=== PATIENT | female | born 1930 | race Caucasian/White ===

== ENCOUNTER 2016-12-01 10:18 | Emergency (ER) | payer MEDICARE, BC, MEDICAID ==
[2016-12-01] MEDS ORDERED: cefTRIAXone VIAL(*) 1,000 MG in NS 0.9% 50 ML* 50 ML IM ONE (12:17)
[2016-12-01] MEDS ORDERED: cefTRIAXone VIAL(*) 1,000 MG VIAL ONE (12:21)
[2016-12-01] MEDS ORDERED: Lidocaine 1% MPF* 2 ML VIAL ONE (12:21)
--- NOTE | 2016-12-01 12:24 | UC ---
Hand/Wrist HPI - HPI Summary HPI Summary: she has had similar presentation in the past and it was found to be gout. she was in contact with Dr. Cedeno for this episode and he called in colcrys. she has taken two doses without relief. She has Left wrist redness and swelling. it is becoming less painful presently . no fevers or chills. No known injury. She has also had diarrhea off and on for a few weeks. it will come and go. she has wanted to speak with Dr. Cedeno but it has improved often. she denies bleeding current abd pain or fever. - History Of Current Complaint Chief Complaint: UCUpperExtremity Stated Complaint: LEFT HAND SWOLLEN Time Seen by Provider: 12/01/16 12:09 Hx Obtained From: Patient, Family/Glazier Supervisor Hx Last Menstrual Period: n/a Onset/Duration: Sudden Onset Severity Initially: Moderate Severity Currently: Mild Character Of Pain: Aching, Stiffness Aggravating Factor(s): Movement Alleviating: Rest Associated Signs And Symptoms: Positive: Swelling, Redness. Negative: Bruising , Fever, Weakness, Numbness/Tingling Related History: Similar Episode/Dx As - prior episode was gout. - Allergies/Home Medications Allergies/Adverse Reactions: Allergies Allergy/AdvReac Type Severity Reaction Status Date / Time CARLIN Inhibitors AdvReac Coughing Verified 05/15/16 15:21 NSAIDs AdvReac AVOIDS DUE Verified 12/01/16 12:02 TO ESRD Home Medications: Home Medications Docusate CAP* [Colace Cap*] 100 - 200 mg PO DAILY PRN 12/01/16 [History Confirmed 12/01/16] Multiple Vitamins W/ Minerals [Eye Vitamins & Minerals] 1 tab PO BID 12/01/16 [ History Confirmed 12/01/16] PMH/Surg Hx/FS Hx/Imm Hx Endocrine History Of: Denies: Diabetes, Thyroid Disease Cardiovascular History Of: Reports: Cardiac Disorders - bradycardia s/p pacemaker, a-fib,, Hypertension, Pacemaker/ICD Respiratory History Of: Reports: Asthma - Chronic bronchitis, Bronchitis Denies: COPD GI/ History Of: Denies: Ulcer Psychological History Of: Reports: Anxiety - WELL CONTROLLED - Surgical History Surgical History: Yes Surgery Procedure, Year, and Place: 1955-HYSTERECTOMY. BIL[place]ACT - [place]. RIGHT ARM FISTULA -[facility]/[place] 2013. BACK SURGERY-[facility] 2004. ORIF RIGHT ANKLE 11/15 [facility], Left hip fx 08/2016 - Family History Known Family History: Positive: Hypertension - Social History Alcohol Use: None Substance Use Type: None Smoking Status (MU): Never Smoked Tobacco Have You Smoked in the Last Year: No - Immunization History Most Recent Influenza Vaccination: Fall 2015 Most Recent Tetanus Shot: UTD Most Recent Pneumonia Vaccination: Up to date Review of Systems All Other Systems Reviewed And Are Negative: Yes Physical Exam Triage Information Reviewed: Yes Appearance: Well-Appearing, No Pain Distress, Well-Nourished Vital Signs: Initial Vital Signs Temp 97.4 F 12/01/16 11:49 Pulse 79 12/01/16 11:49 Resp 24 12/01/16 11:49 BP 144/58 12/01/16 11:49 Vital Signs Reviewed: Yes Eye Exam: Normal Eyes: Positive: Conjunctiva Clear. Negative: Conjunctiva Inflamed ENT Exam: Normal ENT: Positive: Normal ENT inspection, Hearing grossly normal, Pharynx normal, TMs normal. Negative: Pharyngeal erythema, Nasal congestion, Nasal drainage, Tonsillar swelling, Tonsillar exudate, Trismus, Muffled/hoarse voice Neck exam: Normal Neck: Positive: Supple, Nontender, No Lymphadenopathy. Negative: Nuchal Rigidity, Tenderness @, Enlarged Nodes @ Respiratory Exam: Normal Respiratory: Positive: Chest non-tender, Normal breath sounds, No respiratory distress, No accessory muscle use. Negative: Respiratory distress, Decreased breath sounds Cardiovascular Exam: Normal Cardiovascular: Positive: RRR, No Murmur, Pulses Normal Abdominal Exam: Normal Abdomen Description: Positive: Nontender, No Organomegaly Musculoskeletal: Positive: Strength Intact, ROM Intact, Other: - there is left wrist diffuse swelling most notably at the medial aspect. it is warm and pink not hot and red. THere is no streaking or crepitus. there is induration. no axillary adenopathy. Neurological Exam: Normal Neurological: Positive: Alert, Muscle Tone Normal. Negative: Fatigued, Lethargic, Unresponsive, Abnormal Muscle Tone Psychological Exam: Normal Hand/Wrist Course/Dx - Course Course Of Treatment: She has not had much improvement with colcyrs. this could still very well be gout. because of her age and renal disease, she is at risk for infection and therefore we will cover with antibiotics as well. THEre is no suggestion of disseminating infection or sirs criteria. she is due to see Dr. Cedeno on Sunday and will show this to him as well. She and daughter also agree to return immediately to the ed should this worsen or spread in any way. she has no pain with passive range of motion of the wrist and I do not believe this is joint infection. x ray show bony destruction which is likely chronic as her symptoms of pain and swelling again are atraumatic and about 2-3 days old. cancer/mets are a possibility versus possible osteomyelitis. She was reminded before d/c that she should return to ED for any worsening before f/u with Dr. Cedeno. We also discussed the diarrhea which has been intermittent. she will d/w pcp and we have sent stool. f/u with ortho next week as well. - Differential Dx/Diagnosis Differential Diagnosis/HQI/PQRI: Abrasion, Burn, Bursitis, Carpal Tunnel Syndrome, Cellulitis, Contusion, Dislocation, Felon, Foreign Body, Fracture, Gout, Infection, Puncture Wound, Sprain, Strain, Subungual Hematoma, Tenosynovitis Provider Diagnoses: possible cellulitis. possible gout. Discharge - Discharge Plan Condition: Fair Disposition: HOME Prescriptions: Amoxicillin/Clavulanate TAB* [Augmentin TAB 875*] 875 mg PO BID #20 tab Patient Education Materials: Chronic Diarrhea (ED), Wrist Fracture in Adults ( ED) Referrals: Margoth Garcia MD [Primary Care Provider] - 1 Week Evan Cedeno MD [Medical Doctor] - 3 Days Edgard Christianson MD [Medical Doctor] - 3 Days
--- NOTE | 2016-12-01 12:53 | RAD ---
Indication: Wrist swelling left 3 views of the wrist demonstrates no fracture. Degenerative changes of the radiocarpal joint is noted. There is diastases of the radiocarpal joint consistent with scapholunate advanced collapse. Degenerative changes of the trapezium first metacarpal joint is noted. Chondrocalcinosis is noted. IMPRESSION: Findings consistent with scapholunate advanced collapse. Degenerative changes of the radiocarpal joint is noted. Generative changes of the first carpal metacarpal joint is noted.
[2016-12-01 13:41] VITALS: BP 188/72
== END 2016-12-01 13:22 | disposition home or self-care (01) ==
LOC: UCCORT 10:18
DX: M79.89 Other specified soft tissue disorders (principal); R19.7 Diarrhea, unspecified; Z88.6 Allergy status to analgesic agent; Z95.0 Presence of cardiac pacemaker; I48.91 Unspecified atrial fibrillation; Z98.42 Cataract extraction status, left eye; Z98.41 Cataract extraction status, right eye
CPT/HCPCS: 82270; 82272; 87045; 87046; 87077; 87328; 87449; 87493; 87899; 96372; 99213; G0463; J0696

== ENCOUNTER 2017-02-15 11:02 | Inpatient (IN) | payer MEDICARE, BC, MEDICAID ==
[2017-02-15] MEDS ORDERED: Acetaminophen TAB* 325 MG PO ONE (11:44)
--- NOTE | 2017-02-15 14:17 | RAD ---
Indication: Fall, right hip pain. 2 views of the right hip and an AP view the pelvis demonstrates postoperative changes of lower lumbar spine and intramedullary olvin in the left hip. The right hip demonstrates no definite fracture or dislocation. Pelvic ring is intact. IMPRESSION: No fracture of the right hip is noted.
--- NOTE | 2017-02-15 14:18 | RAD ---
Indication: Fall, right femur pain. 2 views of the right femur demonstrates no fracture. No other bone or joint abnormalities identified. Atherosclerosis of the femoral artery is noted. IMPRESSION: No fracture of the right femur is noted.
--- NOTE | 2017-02-15 14:58 | ED ---
Lower Extremity - HPI Summary HPI Summary: Patient presents with right hip and leg pain after a fall from her chair yesterday. She has a history of a left hip fracture in October 2016. She was helped back into her chair but has not been willing to bear weight on the leg. She denies N/T, or swelling in the leg. - History of Current Complaint Chief Complaint: EDExtremityUpper Stated Complaint: FALL Time Seen by Provider: 02/15/17 11:27 Hx Obtained From: Patient, Family/Coating Mixer Hx Last Menstrual Period: n/a Mechanism Of Injury: Fall From A Standing Position Onset of Pain: Immediate Onset/Duration: Still Present Severity Initially: Moderate Severity Currently: Severe Pain Intensity: 7 Timing: Constant Location: Is Discrete @ - right hip and upper thigh Character Of Pain: Aching Associated Signs And Symptoms: Positive: Negative Aggravating Factor(s): Standing, Movement Alleviating Factor(s): Rest Able to Bear Weight: No - Allergies/Home Medications Allergies/Adverse Reactions: Allergies Allergy/AdvReac Type Severity Reaction Status Date / Time CARLIN Inhibitors AdvReac Coughing Verified 05/15/16 15:21 NSAIDs AdvReac AVOIDS DUE Verified 12/01/16 12:02 TO ESRD Home Medications: Home Medications Alendronate (NF) [Fosamax (NF)] 70 mg PO WEEKLY 02/15/17 [History Confirmed ] Amiodarone TAB* [Cordarone TAB*] 200 mg PO DAILY 02/15/17 [History Confirmed ] Apixaban [Eliquis] 2.5 mg PO BID 02/15/17 [History Confirmed 02/15/17] Cholecalciferol [Vitamin D3 Super Strength] 2,000 unit PO DAILY 02/15/17 [ History Confirmed 02/15/17] Cinacalcet TAB* [Sensipar TAB*] 30 mg PO DAILY 02/15/17 [History Confirmed 02/15] Docusate CAP* [Colace Cap*] 100 - 200 mg PO DAILY PRN 02/15/17 [History Confirmed 02/15/17] Donepezil TAB* [Aricept 5 MG TAB*] 5 mg PO DAILY 02/15/17 [History Confirmed ] Multiple Vitamins W/ Minerals [Eye Vitamins & Minerals] 2 tab PO BID 02/15/17 [ History Confirmed 02/15/17] Sevelamer Carb SUSP (NF) [Renvela SUSP (NF)] 0.8 gm PO BID 02/15/17 [History Confirmed 02/15/17] traMADol TAB* [Ultram*] 50 mg PO BID PRN 02/15/17 [History Confirmed 02/15/17] PMH/Surg Hx/FS Hx/Imm Hx Endocrine/Hematology History: Reports: Hx Anemia - STATES H/H RUNS LOW- RECEIVES EPOGEN AT DIALYSIS USUALLY WEDNESDAYS Denies: Hx Diabetes, Hx Thyroid Disease Cardiovascular History: Reports: Hx Hypertension, Hx Pacemaker/ICD, Other Cardiovascular Problems/Disorders - SICK SINUS SYNDROME Respiratory History: Reports: Hx Asthma - Chronic bronchitis, Hx Chronic Bronchitis, Other Respiratory Problems/Disorders - 02 2L PRN SOB. HAS NOT USED IN 3 WEEKS Denies: Hx Chronic Obstructive Pulmonary Disease (COPD) GI History: Reports: Other GI Disorders - DIARRHEA FOR THE PAST 24 HOURS- STATES IS FEELING BETTER- Denies: Hx Ulcer History: Reports: Hx Chronic Renal Failure, Hx Dialysis, Other Problems/ Disorders - Dialysis Musculoskeletal History: Reports: Hx Arthritis - HANDS MOSTLY; STATES "ALL OVER ", Hx Back Problems Sensory History: Reports: Hx Contacts or Glasses - GLASSES, Hx Glaucoma - BILAT , Hx Legally Blind Denies: Hx Cataracts, Hx Hearing Aid Opthamlomology History: Reports: Hx Contacts or Glasses - GLASSES, Hx Glaucoma - BILAT, Hx Legally Blind Denies: Hx Cataracts Psychiatric History: Reports: Hx Anxiety - WELL CONTROLLED - Cancer History Hx Chemotherapy: No - Surgical History Surgery Procedure, Year, and Place: 1955-HYSTERECTOMY. BILAT CATARACT - [place]. RIGHT ARM FISTULA -[facility]/[place] 2012. BACK SURGERY-[facility] 2003. 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" Denies: Hx Human Immunodeficiency Virus (HIV), Hx of Known/Suspected MRSA, Traveled Outside the [place] in Last 30 Days - Family History Known Family History: Positive: Hypertension - Social History Occupation: Retired Lives: With Family Alcohol Use: None Substance Use Type: Reports: None Hx Tobacco Use: No Smoking Status (MU): Never Smoked Tobacco Have You Smoked in the Last Year: No Review of Systems Positive: Myalgia, Decreased ROM Negative: Bruising Negative: Weakness, Paresthesia, Numbness All Other Systems Reviewed And Are Negative: Yes Physical Exam Triage Information Reviewed: Yes Vital Signs On Initial Exam: Initial Vitals Temp Pulse Resp BP Pulse Ox 98.5 F 88 14 114/60 99 18 11:15 18 11:15 02/15/17 11:15 02/15/17 11:15 02/15/17 11:15 Vital Signs Reviewed: Yes Appearance: Positive: Well-Appearing, Well-Nourished, Pain Distress Skin: Positive: Warm, Skin Color Reflects Adequate Perfusion, Dry, Soft Head/Face: Positive: Normal Head/Face Inspection Eyes: Positive: EOMI, [place], Conjunctiva Clear ENT: Positive: Hearing grossly normal Respiratory/Lung Sounds: Positive: Breath Sounds Present Cardiovascular: Positive: RRR Abdomen Description: Positive: Nontender, Soft Musculoskeletal: Positive: Limited @ - right hip flexion 5 degrees with pain, Pain @ - TTP right greater troch and proximal thigh; pain with ER/IR Neurological: Positive: Sensory/Motor Intact, Alert, Oriented to Person Place, Time, NV Bundle Intact Distally, Unable to Assess Gait Psychiatric: Positive: Affect/Mood Appropriate AVPU Assessment: Alert - [place] Coma Scale Coma Scale Total: 15 Diagnostics - Vital Signs Vital Signs Temp Pulse Resp BP Pulse Ox 02/15/17 11:17 98.5 F 88 14 114/60 98 02/15/17 11:15 98.5 F 88 14 114/60 99 - Laboratory Result Diagrams: 02/15/17 17:05 02/15/17 17:05 Lab Statement: Any lab studies that have been ordered have been reviewed, and results considered in the medical decision making process. - Radiology No standard instances Xray Interpretation: No Acute Changes Radiology Interpretation Completed By: Radiologist - CT No standard instances CT Interpretation: Positive (See Comments) CT Interpretation Completed By: Radiologist - Non-displaced right greater trochanteric fracture Lower Extremity Course/Dx - Diagnoses Differential Diagnosis/HQI/PQRI: Positive: Arthritis, Bursitis, Cellulitis, Contusion, Fracture (Closed), Sprain, Strain Provider Diagnoses: Closed right hip fracture - Physician Notifications Discussed Care of Patient With: Dr. Cochran, orthopedic surgery; Dr. Garcia, hospital medicine. Instructed by Provider To: Admit As Inpatient Discharge - Discharge Plan Condition: Stable Disposition: ADMITTED TO [facility]
--- NOTE | 2017-02-15 15:43 | RAD ---
Indication: Right hip pain CT of the pelvis and right hip was obtained in the axial plane. Sagittal and coronal reconstructed images were obtained. Transpedicular screws are noted through L5 and S1. The sacrum is intact with no evidence of fracture. The ilium and sacroiliac joints demonstrates degenerative changes: No fracture is noted. Pelvic ring is intact. Inferior and superior pubic rami are grossly unremarkable. Marked degenerative changes of both hips are noted. The right hip demonstrates undisplaced fracture through the greater trochanter of the right hip. The left hip joint demonstrates subchondral eburnation and subchondral cyst formation. IMPRESSION: Hardware in the lower lumbar spine and left femoral head and neck. There is a fracture through the greater trochanter of the right hip posteriorly without significant displacement. Left hip demonstrates degenerative changes.
--- NOTE | 2017-02-15 15:45 | RAD ---
INDICATION: Left femoral pain COMPARISON: None. TECHNIQUE: Axial scans of the left femur was performed. Coronal and sagittal reconstructed images were obtained. FINDINGS: There is left femoral nailing. There is no CT evidence of hardware failure. There is no CT evidence of periprosthetic fracture. 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 The soft tissue elements about the left femur are unremarkable for arterial calcifications. No soft tissue mass/hematoma is identified. IMPRESSION: THE CT DEMONSTRATES POSTOPERATIVE CHANGE WITH NO ACUTE BONY OR SOFT TISSUE ABNORMALITIES. THE CT FINDINGS SHOULD BE CORRELATED WITH THE CLINICAL EXAM AND WITH PLAIN RADIOGRAPHS INDICATED.
[2017-02-15 17:16] LABS: Hematocrit 31 % (35-47); Hemoglobin 9.8 g/dl (12.0-16.0); Mean Corpuscular HGB Conc 32 g/dl (31-36); Mean Corpuscular Hemoglobin 30 pg (27-31); Mean Corpuscular Volume 94 fL (80-97); Mean Platelet Volume 8 um3 (7.4-10.4); Red Blood Count 3.29 10^6/ul (4.0-5.4); Red Cell Distribution Width 17 % (10.5-15); White Blood Count 5.2 10^3/ul (3.5-10.8)
[2017-02-15 17:17] LABS: Add Diff/Slide Review? Slide Review Added; Comments Flag Yes
[2017-02-15] MEDS ORDERED: NS 0.9% 1000 ML* 1,000 ML IV ONE (17:20)
[2017-02-15 17:31] LABS: Albumin 2.9 g/dL (3.2-5.2); BUN/Creatinine Ratio 7.4 (8-20); C Reactive Protein 78.68 mg/L (< 5.00); Calcium 9.5 mg/dL (8.6-10.3); EGFR African American 12.4 (>60); EGFR Non-African American 9.6 (>60); Globulin 3.3 g/dL (2-4); Total Bilirubin 0.7 mg/dL (0.2-1.0); Total Protein 6.2 g/dL (6.4-8.9)
--- NOTE | 2017-02-15 18:18 | RAD ---
Indication: Preop chest. Single frontal view of the chest performed at 1735 hours was reviewed. Comparison is made with previous exam dated August 13, 2016. Cardiomegaly is noted. Pacemaker leads are in place. No alveolar consolidation is noted. IMPRESSION: CARDIOMEGALY. NO PNEUMONIA IS NOTED.
[2017-02-15] MEDS: CMC:Rosuvastatin (NF) 5 MG TAB PO SCH (20:03)
[2017-02-15] MEDS: Heparin VIAL(*) 5000 UNITS/ML VIAL (FIVE THOUSAND) SUBCUT SCH (21:23)
[2017-02-15] MEDS: Metoprolol Tartrate TAB* 25 MG PO SCH (21:23)
[2017-02-15] MEDS: Nystatin TOP POWDER* 15 GM BTL TOPICAL SCH (21:24)
[2017-02-15] MEDS: SEVELAMER CARB PO SCH (22:06)
[2017-02-15] MEDS: MINERALS PO SCH (22:06)
[2017-02-15] MEDS: MULTIPLE VITAMINS PO SCH (22:06)
--- NOTE | 2017-02-16 00:22 | HP ---
HISTORY AND PHYSICAL: DATE OF ADMISSION: 02/15/17 PRIMARY CARE PROVIDER: Dr. Marli Henning. ATTENDING PHYSICIAN: Dr. Thang Garcia * (dictated by Krystle Florence NP). CHIEF COMPLAINT: Right hip pain after a fall yesterday. HISTORY OF PRESENT ILLNESS: Ms. Busby is an 87-year-old female with past medical history significant for end-stage renal disease, on hemodialysis; chronic atrial fibrillation, on anticoagulation; history of anemia of chronic disease; hyperlipidemia; hypertension who presented to the emergency room today for evaluation of her right hip pain after a fall at home yesterday. Ms. Busby states that she has been in her usual state of health and had returned home from a dialysis session yesterday when she stood up from the chair she was sitting in to take off her jacket. When she went to sit back down, she missed her chair. She got back up into her chair with assistance. The patient states that as the day went on, she felt more stiff and lame and at about 6:30 last night, she noted that she was unable to bear weight on her right leg. It is to note that the patient had a previous left hip fracture in August 2016 at which time, she had an ORIF of that left hip. The patient denies any fever, chills, chest pain, edema, nausea, vomiting, diarrhea, dysuria. She reports baseline shortness of breath and her shortness of breath is at baseline, occasional nonproductive cough that is her baseline and urinary incontinence. At baseline, the patient is able to ambulate with a rolling walker and she was with her daughter. The patient denies hitting on her head or any other injuries. When the patient went to bed and again woke up today and was unable to bear weight on the leg due to pain, she decided to present to the emergency room for further evaluation of her symptoms. While in the emergency room, the patient had a chest x-ray showing a cardiomegaly. EKG showing an atrial paced rhythm with a rate of 70. There is T- wave inversion in lead V3. The patient had labs that were remarkable for CRP of 78.68 and then AST of 44. The patient had a right femur x-ray showing no fracture. She also had a right hip and pelvis x-ray showing no fracture. She also underwent a pelvic CT showing hardware in the lower lumbar spine and the left femoral head and neck. There was also a fracture through the greater trochanter of the right hip posteriorly without significant displacement. The left hip demonstrated degenerative changes. The patient had a right lower extremity CT scan showing no acute bony or soft tissue abnormalities. Hospitalists were asked to evaluate the patient for admission. PAST MEDICAL HISTORY: 1. End-stage renal disease, on hemodialysis. 2. Sick sinus syndrome, status post pacemaker insertion. 3. Paroxysmal atrial fibrillation. 4. COPD/asthma. 5. Hyperlipidemia. 6. Hypertension. 7. Anemia of chronic disease. 8. Anxiety and depression. PAST SURGICAL HISTORY: 1. Status post pacemaker implantation in December 2015. 2. Status post ORIF of the left hip in August 2016. 3. Status post hysterectomy. 4. Status post right foot and ankle ORIF. HOME MEDICATIONS: Include: 1. Fosamax 70 mg oral weekly on Fridays. 2. Diphenhydramine 25 mg oral daily at bedtime. 3. Sevelamer 0.8 g oral twice daily. 4. Cinacalcet 30 mg oral daily. 5. Vitamin D3 2000 units oral daily. 6. Eye vitamins 2 tablets oral twice daily. 7. Paxil 20 mg oral daily. 8. Amiodarone 20 mg oral daily at 1800. 9. Aricept 5 mg oral daily. 10. Eliquis 2.5 mg oral twice daily. 11. Rosuvastatin 5 mg oral daily at 1800. 12. Metoprolol tartrate 25 mg oral twice daily. 13. Allopurinol 100 mg oral every morning. ALLERGIES: CARLIN INHIBITORS and NSAIDS due to the patient's end-stage renal disease. FAMILY HISTORY: The patient's father passed at age 55 from a myocardial infarction. The patient's daughter has a history of diabetes mellitus. The patient's 3 brothers have history of cancer, one with throat, one with prostate , and one with unknown cancer. SOCIAL HISTORY: The patient denies tobacco, alcohol, or recreational drug use. She is retired. She lives with her daughter, Katya Busby, who will be her surrogate decision maker in the event that she is unable to make decisions for herself. REVIEW OF SYSTEMS: I performed a 14-point review of systems. All the pertinent positives and negatives are mentioned in the history of present illness. The remaining review of systems is negative. PHYSICAL EXAMINATION GENERAL APPEARANCE: The patient is alert, pleasant, appears to be in no acute distress. VITAL SIGNS: Temperature 98.4, heart rate 72, respiratory rate 16, O2 sat 94% on room air, blood pressure 147/53. HEENT: Normocephalic, atraumatic. Pupils are equal and reactive to light. Extraocular movements are intact. RESPIRATORY: There is no accessory muscle use and the lungs are clear to auscultation bilaterally. CARDIOVASCULAR: Regular rate and rhythm. S1, S2 present. There are no murmurs , rubs, or gallops heard. ABDOMEN: Soft, nontender, nondistended. There are bowel sounds present x4. EXTREMITIES: There is no lower extremity edema. DP and PT pulses are 1+ and symmetric. MUSCULOSKELETAL: There is no clubbing or cyanosis noted. The patient exhibits good strength in all extremities, although she does have pain with moving of the right lower extremity. NEUROLOGIC: The patient is alert and oriented to person, place and time. She does seem a little forgetful. Cranial nerves II through XII are grossly intact. PSYCHOLOGICAL: The patient is calm and cooperative. SKIN: There are no rashes or abnormalities seen. DIAGNOSTIC STUDIES/LABORATORY DATA: Sodium 134, potassium 4.0, chloride 93, CO2 33, BUN 32, creatinine 4.35, glucose 75. INR 1.27. CRP 78.68. White blood cell count of 5.2, hemoglobin 9.8, hematocrit 31, and platelet count 128. EKG shows an atrial paced rhythm with a rate of 70. There is a T-wave inversion in lead V2. This EKG is similar to previous EKG from 08/12/13. All the other previous EKGs in the system showed dual paced rhythm. 1. Right femur x-ray from today. Radiologist impression: No fracture of the right femur is noted. 2. Right hip and pelvis x-ray from today. Radiologist impression: No fracture of the right hip is noted. 3. CT pelvis from today. Radiologist impression: Hardware in the lower lumbar spine and left femoral head and neck. There is a fracture through the greater trochanter of the right hip posteriorly without significant displacement. Left hip demonstrates degenerative changes. 4. Right lower extremity CT from today. Radiologist impression: The CT demonstrates postoperative change with no acute bony or soft tissue abnormalities. 5. Chest x-ray from today shows cardiomegaly. No pneumonia is noted. IMPRESSION: Ms. Busby is an 87-year-old female with past medical history significant for end-stage renal disease, sick sinus syndrome, paroxysmal atrial fibrillation, hypertension and hyperlipidemia and anemia of chronic disease who presents to the emergency room after falling at home yesterday with complaints of right hip pain. Ms. Busby will be admitted as an inpatient for a right greater trochanter fracture. ASSESSMENT AND PLAN: 1. Right greater trochanter fracture. Management will be per Orthopedic Surgery, they have been asked to consult on the patient. At this time, she will be placed on bed rest. She will have tramadol as needed for pain. Orthopedic Surgery has asked that we get an MRI to better evaluate the patient's hip fracture. If this is determined to be a nonoperative fracture, we will order physical therapy and the patient will be weightbearing as tolerated. As far as the patient's surgical clearance, according to the RCRI, she has 1 point and a class 2 risk placing her at 0.9% risk for major cardiac event. She does have other risk factors such as her end-stage renal disease. Her METS score is 4. She needs no further cardiac workup at this time and may proceed to the OR if deemed necessary. The patient did have an echocardiogram in August 2016 prior to her previous surgery showing normal left ventricular systolic function with an EF of 55% to 60%. Trace to mild mitral regurgitation, [id number] tricuspid regurgitation and evidence of mild pulmonary hypertension and left atrium was moderately dilated. 2. End-stage renal disease. The patient generally receives hemodialysis on Sunday, Sunday, and Sunday. We will notify dialysis clinic of the patient's admission. She will be continued on her home sevelamer, will be on a renal diet. 3. History of paroxysmal atrial fibrillation. The patient will be continued on her home amiodarone and metoprolol tartrate. For now until we determine if the patient is going to have surgery, we are going to hold her Eliquis. 4. History of anxiety and depression. The patient will be continued on her home Paxil. 5. Hyperlipidemia. The patient will be continued on statin. 6. Fluids, electrolytes, and nutrition. The patient will be on a renal diet. 7. DVT prophylaxis. The patient is at a highest risk and will be placed on SCDs and subcu heparin. We will resume her Eliquis when okay with Orthopedic Surgery. 8. Code status. At this time, the patient is going to be a full code. Her and her daughter are going to discuss her code status and let us know if they change their minds. 9. Disposition. Inpatient. TIME SPENT: The time for this admission was 60 minutes and 35 minutes were spent with the patient and her daughter discussing medications, past medical history, the events leading up to her arrival today and performing physical examination. The case was reviewed with the attending, Dr. Garcia, who agrees with the plan of care. Reviewed by PAUL BARR-C 02/17/17 1643 CC: Dr. Marli Henning * [id number]/[facility] #: [id number] [id number]
[2017-02-16] MEDS: traMADol TAB* 50 MG PO PRN ×2 (03:32→18:15)
[2017-02-16] MEDS: Heparin VIAL(*) 5000 UNITS/ML VIAL (FIVE THOUSAND) SUBCUT SCH ×3 (05:26→21:44)
[2017-02-16 06:41] LABS: Hematocrit 30 % (35-47); Hemoglobin 9.6 g/dl (12.0-16.0); Mean Corpuscular HGB Conc 32 g/dl (31-36); Mean Corpuscular Hemoglobin 31 pg (27-31); Mean Corpuscular Volume 94 fL (80-97); Mean Platelet Volume 9 um3 (7.4-10.4); Red Blood Count 3.14 10^6/ul (4.0-5.4); Red Cell Distribution Width 18 % (10.5-15); White Blood Count 6.1 10^3/ul (3.5-10.8)
[2017-02-16 06:52] LABS: Calcium 9.1 mg/dL (8.6-10.3); EGFR Non-African American 7.8 (>60); Potassium 4.2 mmol/L (3.5-5.0)
--- NOTE | 2017-02-16 09:36 | PN ---
Progress Note - Progress Note Note: Full note to follow. Right greater trochanter fracture in an 87 year old woman on dialysis. Also significant right knee pain and swelling and bruising on exam. I will obtain right knee xrays. If she only has the greater trochanter fracture then we will plan to allow her to mobilize and weight bear as tolerated. She has minimal pain on logroll right hip so there is almost certainly no occult femoral neck or intertroch fracture. I will follow up the right knee xrays.
[2017-02-16] MEDS: Nystatin TOP POWDER* 15 GM BTL TOPICAL SCH ×3 (10:41→20:50)
[2017-02-16] MEDS: Allopurinol TAB* 100 MG PO SCH (10:42)
[2017-02-16] MEDS: MINERALS PO SCH ×2 (10:43→20:55)
[2017-02-16] MEDS: Metoprolol Tartrate TAB* 25 MG PO SCH ×2 (10:43→20:50)
[2017-02-16] MEDS: Cinacalcet TAB* 30 MG PO SCH (10:43)
[2017-02-16] MEDS: SEVELAMER CARB PO SCH ×2 (10:43→20:55)
[2017-02-16] MEDS: PARoxetine HCL TAB* 20 MG PO SCH (10:43)
[2017-02-16] MEDS: MULTIPLE VITAMINS PO SCH ×2 (10:43→20:55)
[2017-02-16] MEDS: Donepezil TAB* 5 MG PO SCH (10:44)
--- NOTE | 2017-02-16 11:05 | RAD ---
INDICATION: Right knee pain. Fall. Bruising. COMPARISON: None TECHNIQUE: AP, lateral, tunnel, and sunrise views were obtained. FINDINGS: There is osteopenia. There is no acute bony change. There is a healed proximal fibular fracture. There is minor patellofemoral joint space narrowing. There is a tiny effusion. There are vascular calcifications. IMPRESSION: NO ACUTE BONY CHANGE. TINY EFFUSION.
--- NOTE | 2017-02-16 15:19 | PN ---
Subjective Date of Service: 02/16/17 Interval History: Ms. Busby states that she is feeling well this afternoon. She denies chest pain, SOB, nausea, or abdominal pain. Her hip pain is well controlled thus far. Objective Active Medications: Allopurinol (Zyloprim Tab*) 100 mg PO QAM MARGARET Amiodarone HCl (Cordarone Tab*) 200 mg PO 1800 MARGARET Cinacalcet (Sensipar Tab*) 30 mg PO DAILY MARGARET Donepezil HCl (Aricept Tab*) 5 mg PO DAILY MARGARET Heparin Sodium (Porcine) (Heparin Vial(*)) 5,000 units SUBCUT Q8HR MARGARET Metoprolol Tartrate (Lopressor Tab*) 25 mg PO BID MARGARET Non-Formulary Medication (Multiple Vitamins W/ Minerals [Eye Vitamins & Minerals ]) 2 tab PO BID MARGARET Nystatin (Nystatin Top Powder*) 1 applic TOPICAL TID MARGARET Paroxetine HCl (Paxil Tab*) 20 mg PO DAILY MARGARET Rosuvastatin Calcium (Crestor (Nf)) 5 mg PO 1800 MARGARET Sevelamer Carbonate (Renvela Susp (Nf)) 0.8 gm PO BID MARGARET Tramadol HCl (Ultram*) 50 mg PO Q8H PRN Vital Signs 02/15/17 02/15/17 02/15/17 18:18 18:19 18:42 Temperature 98.4 F Pulse Rate 72 72 Respiratory 16 Rate Blood Pressure 147/53 147/53 (mmHg) O2 Sat by Pulse 94 Oximetry 02/15/17 02/15/17 02/15/17 19:11 21:19 23:00 Temperature 98.6 F 97.6 F Pulse Rate 75 76 Respiratory 16 16 16 Rate Blood Pressure 157/46 134/41 (mmHg) O2 Sat by Pulse 97 Oximetry 02/16/17 02/16/17 02/16/17 00:03 03:32 03:38 Temperature 98.1 F 97.7 F Pulse Rate 76 77 Respiratory 16 16 16 Rate Blood Pressure 126/87 159/54 (mmHg) O2 Sat by Pulse Oximetry 02/16/17 02/16/17 02/16/17 04:33 05:32 08:09 Temperature Pulse Rate Respiratory 16 16 Rate Blood Pressure (mmHg) O2 Sat by Pulse 94 Oximetry 02/16/17 02/16/17 08:40 12:47 Temperature 97.9 F 98.4 F Pulse Rate 74 74 Respiratory 17 16 Rate Blood Pressure 146/49 141/45 (mmHg) O2 Sat by Pulse Oximetry Oxygen Devices in Use Now: None Appearance: Elderly female sitting up in bed in NAD Eyes: No Scleral Icterus Ears/Nose/Mouth/Throat: Mucous Membranes Moist Neck: NL Appearance and Movements; NL JVP, Trachea Midline Respiratory: Symmetrical Chest Expansion and Respiratory Effort, Clear to Auscultation Cardiovascular: NL Sounds; No Murmurs; No JVD, No Edema Abdominal: NL Sounds; No Tenderness; No Distention Extremities: No Edema Skin: No Rash or Ulcers Neurological: Alert and Oriented x 3, NL Muscle Strength and Tone Nutrition: Taking PO's Result Diagrams: 02/16/17 06:03 02/16/17 06:03 Assess/Plan/Problems-Billing Assessment: Ms. Busby is an 87 yo female with a PMH of end stage renal disease on hemodialysis, paroxysmal afib, COPD, and htn who was admitted on 02/15/17 with right hip fracture. - Patient Problems (1) Closed right hip fracture Comment: Management per ortho. Pain meds prn, bowel regimen. PT/OT. Monitor H /H. (2) Hypertension Comment: BP well controlled, continue metoprolol. (3) Atrial fibrillation Comment: Paced rhythm. Continue amiodarone, lopressor. Hold Eliquis. (4) COPD (chronic obstructive pulmonary disease) Current Visit: No Status: Chronic Code(s): J44.9 - CHRONIC OBSTRUCTIVE PULMONARY DISEASE, UNSPECIFIED SNOMED Code(s): 41077655 Comment: Stable. Monitor. (5) Dialysis patient Comment: Continue per routine. (6) DVT prophylaxis Comment: Heparin SQ. (7) Full code status Status and Disposition: Inpatient. Suspect will need SARIKA vs PMRU.
[2017-02-16] MEDS ORDERED: Heparin DIALYSIS ONLY(*) 1,000 UNITS/ML VIAL DIALYSIS ONE (16:00)
[2017-02-16] MEDS ORDERED: Amiodarone TAB* 200 MG PO SCH (18:00)
[2017-02-16] MEDS: CMC:Rosuvastatin (NF) 5 MG TAB PO SCH (18:14)
--- NOTE | 2017-02-17 01:58 | CONS ---
CONSULTATION REPORT: DATE OF CONSULT: 02/16/17 CHIEF COMPLAINT: Right hip pain. HISTORY OF PRESENT ILLNESS: The patient is a very pleasant 87-year-old female who presented to the emergency room on 02/15/17 after suffering a fall at home on 02/14/17. The patient states on Sunday she fell without any loss of consciousness or head injury. She was able to get up and continued to walk throughout the day; however, she noted having increased pain in the right hip area throughout the day, which caused her to feel like her leg was buckling due to the increased pain. Her symptoms were similar on and she went to the emergency room where she was found to have a fracture through the greater trochanter of the right hip without significant displacement. She was admitted under the hospitalist service and a consult to Orthopedics was placed. The patient also had a fall on her right knee approximately 2 weeks ago while she was at dialysis. She states she was able to walk on this without much difficulty, although it does still cause her a mild amount of pain at times. She has not had any other falls on this area and had no difficulty prior to this most recent fall with walking on her knee. PAST MEDICAL HISTORY: 1. End-stage renal disease, currently on hemodialysis. 2. Sick sinus syndrome, status post pacemaker. 3. Paroxysmal atrial fibrillation. 4. COPD/asthma. 5. Hyperlipidemia. 6. Hypertension. 7. Anemia of chronic disease. 8. Anxiety and depression. PAST SURGICAL HISTORY: 1. Status post pacemaker implantation, December 2015. 2. Status post ORIF of the left hip, December 2015. 3. Status post hysterectomy. 4. Status post right foot and ankle ORIF. HOME MEDICATIONS: 1. Fosamax 70 mg orally weekly on Sunday. 2. Diphenhydramine 25 mg p.o. q.h.s. 3. Sevelamer 0.8 g orally twice daily. 4. Cinacalcet 30 mg p.o. daily. 5. Vitamin D3 2000 international units orally daily. 6. Eye vitamins 2 tablets orally twice daily. 7. Paxil 20 mg orally daily. 8. Amiodarone 20 mg orally daily at 1800. 9. Aricept 5 mg p.o. daily. 10. Eliquis 2.5 mg p.o. twice daily. 11. Rosuvastatin 5 mg p.o. daily at 1800. 12. Metoprolol 25 mg p.o. b.i.d. 13. Allopurinol 100 mg p.o. daily. ALLERGIES: CARLIN INHIBITORS and NSAIDS due to the patient's end-stage renal disease. SOCIAL HISTORY: The patient denies tobacco, alcohol use, or recreational use. She is retired. PHYSICAL EXAM: General: Well appearing, in no acute distress. Alert and oriented. Sitting comfortably in bed, eating lunch. Vital Signs: Temperature 98.4, pulse 74, respirations 16, blood pressure 141/45. HEENT: Normocephalic, atraumatic. Musculoskeletal: Posterior tibial pulses 2+ bilateral lower extremities. No bilateral lower extremity edema noted. Negative Amberly sign bilaterally. Positive dorsiflexion and plantarflexion, equal bilaterally. Right knee with healing ecchymosis noted on the lateral portion extending posteriorly, tenderness over ecchymotic area. No tenderness with patellar grind. Full flexion and extension of the knee without any signs of instability. Positive lateral joint line tenderness, negative medial joint line tenderness, positive tenderness with palpation of the posterior aspect. Mild tenderness over the IT band extending to the hips. Worse pinpoint tenderness over the region of the greater trochanter of the right hip. No ecchymosis seen. No skin compromise. Flexion of right hip to approximately 60 degrees passively with pain beyond 60. The patient is able to actively flex leg to approximately 20 degrees, similar to left hand side. Strength with flexion and extension of hip approximately 3/5 bilaterally. Neurologic: Patient is alert and oriented. No difficulty remembering events or surgery dates. DIAGNOSTIC STUDIES/LAB DATA: Pelvic CT dated 02/15/17 shows some fracture throughout the greater trochanter of the right hip posteriorly without significant displacement with hardware in the lower lumbar and left femoral head and neck. Knee x-rays of the right knee obtained 02/16/17 showed no bony change with a small effusion and a healed proximal tibia fracture. IMPRESSION AND PLAN: 1. Right greater trochanteric fracture. The patient will be discussed with Dr. Cochran; however, due to her type of fracture being likely nonoperative, we will lift her bedrest restrictions and allow her to work with physical therapy with hopefully maximal improvement seen over the next few weeks. 2. DVT prophylaxis. The patient currently is on SCD's and subacute heparin. If she is not an operative candidate, we will resume her Eliquis. WALTER SCHWARTZ [id number]/[facility] #: [id number] Right greater trochanter fracture. No pain on logroll. Plan for weight bear as tolerated. Knee xrays negative. Follow up in office. KELLY
[2017-02-17] MEDS: traMADol TAB* 50 MG PO PRN (05:45)
[2017-02-17] MEDS: Heparin VIAL(*) 5000 UNITS/ML VIAL (FIVE THOUSAND) SUBCUT SCH (05:46)
[2017-02-17 08:42] VITALS: BP 158/49
--- NOTE | 2017-02-17 10:07 | PN ---
Subjective Date of Service: 02/17/17 Objective Active Medications: Allopurinol (Zyloprim Tab*) 100 mg PO QAM MARGARET Amiodarone HCl (Cordarone Tab*) 200 mg PO 1800 MARGARET Cinacalcet (Sensipar Tab*) 30 mg PO DAILY MARGARET Donepezil HCl (Aricept Tab*) 5 mg PO DAILY MARGARET Heparin Sodium (Porcine) (Heparin Vial(*)) 5,000 units SUBCUT Q8HR MARGARET Metoprolol Tartrate (Lopressor Tab*) 25 mg PO BID MARGARET Midodrine (Midodrine (Nf)) 5 mg PO MoWeFr@0900 MARGARET Non-Formulary Medication (Multiple Vitamins W/ Minerals [Eye Vitamins & Minerals ]) 2 tab PO BID MARGARET Nystatin (Nystatin Top Powder*) 1 applic TOPICAL TID MARGARET Paroxetine HCl (Paxil Tab*) 20 mg PO DAILY MARGARET Rosuvastatin Calcium (Crestor (Nf)) 5 mg PO 1800 MARGARET Sevelamer Carbonate (Renvela Susp (Nf)) 0.8 gm PO BID MARGARET Tramadol HCl (Ultram*) 50 mg PO Q8H PRN Vital Signs 02/16/17 02/16/17 02/16/17 12:47 18:15 19:24 Temperature 98.4 F 98.4 F Pulse Rate 74 70 Respiratory 16 16 16 Rate Blood Pressure 141/45 146/45 (mmHg) O2 Sat by Pulse 99 Oximetry 02/16/17 02/16/17 02/16/17 20:00 20:15 23:32 Temperature 98.4 F Pulse Rate 72 Respiratory 17 16 18 Rate Blood Pressure 128/35 (mmHg) O2 Sat by Pulse Oximetry 02/17/17 02/17/17 02/17/17 01:25 03:58 05:45 Temperature 98.1 F Pulse Rate 69 76 Respiratory 16 16 Rate Blood Pressure 167/46 147/57 (mmHg) O2 Sat by Pulse Oximetry 02/17/17 08:09 Temperature 98.5 F Pulse Rate 72 Respiratory 18 Rate Blood Pressure 158/49 (mmHg) O2 Sat by Pulse Oximetry Oxygen Devices in Use Now: None Result Diagrams: 02/16/17 06:03 02/16/17 06:03 Assess/Plan/Problems-Billing Assessment: Ms. Busby is an 87 yo female with a PMH of end stage renal disease on hemodialysis, paroxysmal afib, COPD, and htn who was admitted on 02/15/17 with right hip fracture. - Patient Problems (1) Greater trochanter fracture Comment: Per ortho, fracture is non-operative. Mobilize with weight bearing as tolerated. PT eval found patient to essentially be at baseline mobility. (2) Hypertension Comment: BP well controlled, continue metoprolol. (3) Atrial fibrillation Comment: Paced rhythm. Continue amiodarone, lopressor. Resume Eliquis. (4) COPD (chronic obstructive pulmonary disease) Comment: Stable. Monitor. (5) Dialysis patient Comment: Continue per routine. (6) DVT prophylaxis Comment: Heparin SQ. (7) Full code status Status and Disposition: Inpatient. Discharge to home.
[2017-02-17] MEDS: Metoprolol Tartrate TAB* 25 MG PO SCH (10:17)
[2017-02-17] MEDS: Cinacalcet TAB* 30 MG PO SCH (10:18)
[2017-02-17] MEDS: Donepezil TAB* 5 MG PO SCH (10:19)
[2017-02-17] MEDS: Allopurinol TAB* 100 MG PO SCH (10:19)
[2017-02-17] MEDS: PARoxetine HCL TAB* 20 MG PO SCH (10:20)
[2017-02-17] MEDS ORDERED: SEVELAMER CARBONATE 0.8 GM PO SCH (21:00)
[2017-02-17] MEDS ORDERED: MINERALS PO SCH (21:00)
[2017-02-17] MEDS ORDERED: MULTIPLE VITAMINS PO SCH (21:00)
[2017-02-17] MEDS ORDERED: Apixaban* 2.5 MG TAB PO SCH (21:00)
--- NOTE | 2017-02-18 02:04 | DS ---
DISCHARGE SUMMARY: DATE OF ADMISSION: 02/15/17 DATE OF DISCHARGE: 02/16/17 PRIMARY CARE PHYSICIAN: Marli Henning MD. ATTENDING PHYSICIAN: Michael Mcarthur MD *(dictation provided by Yoli Sanchez NP ). PRIMARY DIAGNOSIS: Right greater trochanteric hip fracture, nonoperative. SECONDARY DIAGNOSES: 1. End-stage renal disease, on hemodialysis. 2. Sick sinus syndrome, status post pacemaker insertion. 3. Paroxysmal atrial fibrillation. 4. Chronic obstructive pulmonary disease/asthma. 5. Hyperlipidemia. 6. Hypertension. 7. Anemia of chronic disease. 8. Anxiety and depression. PAST SURGICAL HISTORY: 1. Status post pacemaker implantation, December 2015. 2. Status post ORIF of the left hip, August 2016. 3. Status post hysterectomy. 4. Status post right foot and ankle ORIF. MEDICATIONS AT THE TIME OF DISCHARGE: There are no medication changes. 1. Fosamax 70 mg oral weekly on Fridays. 2. Diphenhydramine 25 mg oral daily at bedtime. 3. Sevelamer 0.8 g oral twice daily. 4. Cinacalcet 30 mg oral daily. 5. Vitamin D3 2000 units oral daily. 6. Eye vitamins 2 tablets oral twice daily. 7. Paxil 20 mg oral daily. 8. Amiodarone 200 mg p.o. q.p.m. 9. Aricept 5 mg oral daily. 10. Eliquis 2.5 mg oral twice daily. 11. Rosuvastatin 5 mg oral daily. 12. Metoprolol tartrate 25 mg oral twice daily. 13. Allopurinol 100 mg oral every morning. HOSPITAL COURSE: Ms. Busby is an 87-year-old female with past medical history as outlined above, who presented to the emergency room on 02/15/17 with concern for right hip pain after a fall. Please see the dictated H and P from Krystle Florence for complete details. In brief, at the time of admission, the patient had multiple imaging studies including femur x-ray, hip and pelvis x-ray, pelvis CT, lower extremity CT and knee x-ray. Ultimately, it was discovered that the patient had greater trochanteric fracture of the right hip posteriorly without significant displacement based on CT of the pelvis. Patient was seen in consultation by Dr. Cochran from Orthopedic Surgery. He notes that this would be a nonoperative fracture and advanced her to weightbearing as tolerated with physical therapy as needed. Ms. Busby has been doing well this morning. She was seen by Physical Therapy and found to be essentially at baseline in terms of her mobility with a walker. She has no stairs to get into the home and she lives with her daughter, who help provide care for her. Ms. Busby is medically stable for discharge to home. DISPOSITION: Home. DIET: Renal. ACTIVITY: As tolerated with weightbearing as tolerated on the right lower extremity. FOLLOWUP PLANS: Please follow up per routine with Dr. Henning after this hospitalization. TIME SPENT: Approximately 60 minutes was spent in the discharge of this patient ; more than half the time spent with the patient at the bedside reviewing the events leading up to this hospitalization, performing the physical examination, and reviewing my plan of care. YOLI SANCHEZ NP CC: Marli Henning MD* [id number]/[facility] #: [id number] KELLY
[2017-02-19] MEDS ORDERED: CMCS - Midodrine (NF) 5 MG TAB PO SCH (09:00)
== END 2017-02-17 12:40 | disposition home health service (06) | DRG 535 ==
LOC: ED 11:02 → SSU 17:39
PROVIDERS: ADMIT Hospitalist; ATTEND Internal Medicine
PROC: 5A1D60Z (ICD-10-PCS; principal; 2017-02-16)
DX: S72.114A Nondisplaced fracture of greater trochanter of right femur, initial encounter for closed fracture (principal); N18.6 End stage renal disease; I12.0 Hypertensive chronic kidney disease with stage 5 chronic kidney disease or end stage renal disease; I49.5 Sick sinus syndrome; I08.1 Rheumatic disorders of both mitral and tricuspid valves; W07.XXXA Fall from chair, initial encounter; M19.042 Primary osteoarthritis, left hand; M19.041 Primary osteoarthritis, right hand; H54.8 Legal blindness, as defined in USA; H40.9 Unspecified glaucoma; F41.9 Anxiety disorder, unspecified; R40.2412 Glasgow coma scale score 13-15, at arrival to emergency department; I48.2 Chronic atrial fibrillation; E78.5 Hyperlipidemia, unspecified; I48.0 Paroxysmal atrial fibrillation; J44.9 Chronic obstructive pulmonary disease, unspecified; D63.8 Anemia in other chronic diseases classified elsewhere; F32.9 Major depressive disorder, single episode, unspecified; Z90.710 Acquired absence of both cervix and uterus; Z98.42 Cataract extraction status, left eye; Z98.41 Cataract extraction status, right eye; Z82.49 Family history of ischemic heart disease and other diseases of the circulatory system; Y92.009 Unspecified place in unspecified non-institutional (private) residence as the place of occurrence of the external cause; Z88.8 Allergy status to other drugs, medicaments and biological substances; Z88.6 Allergy status to analgesic agent; Z99.2 Dependence on renal dialysis; Z95.0 Presence of cardiac pacemaker; Z83.3 Family history of diabetes mellitus; Z80.42 Family history of malignant neoplasm of prostate; Z80.8 Family history of malignant neoplasm of other organs or systems; Z79.01 Long term (current) use of anticoagulants
CPT/HCPCS: 36415; 71010; 72192; 80048; 80053; 85025; 85610; 86140; 93005; A9270-GY; J1644

== ENCOUNTER 2017-07-13 05:04 | Inpatient (IN) | payer MEDICARE, BC, MEDICAID ==
[2017-07-13] MEDS ORDERED: Morphine INJ* 4 MG/ML 1 ML CARPUJECT IV ONE (05:31)
[2017-07-13 06:06] LABS: Hematocrit 34 % (35-47); Hemoglobin 10.7 g/dl (12.0-16.0); Mean Corpuscular HGB Conc 32 g/dl (31-36); Mean Corpuscular Hemoglobin 29 pg (27-31); Mean Corpuscular Volume 93 fL (80-97); Mean Platelet Volume 8 um3 (7.4-10.4); Red Blood Count 3.66 10^6/ul (4.0-5.4); Red Cell Distribution Width 19 % (10.5-15); White Blood Count 13.3 10^3/ul (3.5-10.8)
[2017-07-13 06:16] LABS: Albumin 3.1 g/dL (3.2-5.2); BUN/Creatinine Ratio 9.4 (8-20); Calcium 9.1 mg/dL (8.6-10.3); EGFR African American 10.9 (>60); EGFR Non-African American 8.5 (>60); Globulin 3.4 g/dL (2-4); Potassium 4.1 mmol/L (3.5-5.0); Total Bilirubin 0.5 mg/dL (0.2-1.0); Total Protein 6.5 g/dL (6.4-8.9)
[2017-07-13 06:17] LABS: Troponin I 0.03 ng/mL (<0.04)
[2017-07-13 07:23] LABS: Urine Bilirubin Negative (Negative); Urine Glucose Negative (Negative); Urine Nitrite Negative (Negative)
--- NOTE | 2017-07-13 08:10 | RAD ---
INDICATION: Left hip pain after a fall COMPARISON: Most recent comparison chest x-ray is dated February 15, 2017 TECHNIQUE: Single AP portable view of the chest was obtained. FINDINGS: Image quality is compromised due to the relative inferiority of a portable chest x-ray. Again noted is a left upper chest cardiac pacemaker with 2 leads overlying the heart. There is a mild degree of cardiomegaly and coarse calcification overlying the arch of the aorta. The lungs appear hyperaerated in the AP projection. There is a linear density at the lateral mid level right lung. There is right costophrenic angle blunting similar in appearance to the previous chest x-ray. The lungs are otherwise grossly clear. Visualized bones are normal for the patient's age. IMPRESSION: In the correct clinical setting the constellation of findings could represent cardiogenic pulmonary edema.
--- NOTE | 2017-07-13 08:12 | RAD ---
INDICATION: Right hip pain. COMPARISON: Comparison is made with a prior x-ray study of the right hip from March 06, 2017. TECHNIQUE: 2 AP views of the pelvis were obtained. FINDINGS: The bones appear osteopenic. The patient is status post operative reduction and internal fixation of an intertrochanteric fracture of the left femur. Note is made of a gamma nail and intramedullary olvin present which appear unchanged from the prior study. There also appears to be a small fracture fragment adjacent to the right greater trochanter which was present on the prior study. No new fracture is seen. There is severe osteoarthritic change in the left hip and mild osteoarthritic change in the right hip. Postsurgical changes are noted in the visualized portion of the lower lumbar spine. IMPRESSION: 1. OLD FRACTURE OF THE RIGHT GREATER TROCHANTER, IF THE PATIENT'S SYMPTOMS PERSIST RECOMMEND FOLLOW-UP IMAGING. 2. STATUS POST OPERATIVE REDUCTION AND INTERNAL FIXATION OF AN INTERTROCHANTERIC FRACTURE OF THE LEFT FEMUR.
--- NOTE | 2017-07-13 08:13 | RAD ---
Indication: Right leg pain after a fall Comparison: None. Technique: 5 views right lower leg. Report: Mild degenerative changes of the right knee include medial greater than lateral joint space narrowing. There is an obliquely oriented spiral fracture at the distal metaphysis of the right tibia exhibiting a slight degree of displacement. There is obliquely oriented lucency at the distal right fibular metaphysis that is seen to be a fracture on the lateral view. There are degenerative changes of the ankle but the joint appears to be otherwise properly aligned. Incidental note is made of advanced calcified atherosclerosis of the posterior tibial and anterior tibial arteries. IMPRESSION: Comminuted and slightly displaced spiral fractures involving the distal right tibia and fibula.
--- NOTE | 2017-07-13 08:13 | RAD ---
Indication: Intracranial injury. CT of the brain was performed without IV contrast. Ventricular structures are midline. No midline shift is noted. The extra-axial spaces are unremarkable. There is no evidence of intracranial mass or hemorrhage. No other high or low density lesions are identified. Mastoid air cells and paranasal sinuses are otherwise unremarkable. IMPRESSION: No intracranial mass or hemorrhage is noted.
--- NOTE | 2017-07-13 08:15 | RAD ---
INDICATION: Left ankle pain after a fall COMPARISON: None. TECHNIQUE: 3 views of the left ankle were obtained. FINDINGS: The well corticated bones exhibit normal alignment. Joint spaces appear maintained. No fracture is seen. There is calcified atherosclerosis of the distal posterior tibial and anterior tibial arteries with calcified atherosclerosis extending into the plantar arteries and dorsalis pedis artery respectively. IMPRESSION: NO RADIOGRAPHICALLY APPARENT FRACTURE OR DISLOCATION OF THE LEFT ANKLE. If the patient's symptoms persist, follow-up imaging is recommended.
[2017-07-13] MEDS ORDERED: Acetaminophen TAB* 325 MG PO PRN (08:23)
[2017-07-13] MEDS ORDERED: Morphine INJ* 2 MG/ML 1 ML CARPUJECT IV PRN (08:23)
[2017-07-13] MEDS ORDERED: Cinacalcet TAB* 30 MG PO SCH (09:00)
[2017-07-13] MEDS ORDERED: Donepezil TAB* 5 MG PO SCH (09:00)
[2017-07-13] MEDS ORDERED: Morphine INJ* 2 MG/ML 1 ML SYRINGE (TWO MG - NEW SYRINGE VERSION) ONE (09:59)
[2017-07-13] MEDS: Metoprolol Tartrate TAB* 25 MG PO SCH ×2 (10:01→21:32)
[2017-07-13] MEDS: Allopurinol TAB* 100 MG PO SCH (10:04)
--- NOTE | 2017-07-13 13:18 | HP ---
ADDENDUM NOW INCLUDED ON THIS REPORT CC: Dr. Marli Henning; Dr. Rene; Dr. Choi; Dr. Michael, [facility] * HISTORY AND PHYSICAL: DATE OF ADMISSION: 07/13/17 PRIMARY CARE PROVIDER: Dr. Marli Henning. CHIEF COMPLAINT: Fall and right leg pain. HISTORY OF PRESENT ILLNESS: Ms. Busby is an 87-year-old female with history of end-stage renal disease and atrial fibrillation, on anticoagulation, who stated that last night, she almost tripped and caught her left leg over something but eventually she did not fall. She was able to walk with her walker to the bed and today in the morning when she attempted to stand up, she "went down." She fell backwards hitting the back of her head. Subsequently, she complained of right leg pain and she was noted to have spiral right tibia and fibular fracture that was splinted in the emergency department by the ED physician and she is going to be admitted for further management. PAST MEDICAL HISTORY: 1. History of end-stage renal disease, on dialysis, on Mondays, Wednesdays, and Fridays in [place]. 2. History of sick sinus syndrome, status post pacemaker placement. 3. History of paroxysmal atrial fibrillation. 4. History of COPD and asthma, on oxygen p.r.n. 5. Hypertension. 6. Hyperlipidemia. 7. History of anemia of chronic disease. 8. Anxiety and depression. 9. History of spinal fusion. 10. History of ORIF of left hip in August 2016 and an ORIF of right hip in January of 2017. 11. History of hysterectomy. 12. History of right foot and ankle ORIF in the past. 13. The patient's dialysis graft is in her right forearm. MEDICATIONS: At home, include: 1. Allopurinol 100 mg daily. 2. Metoprolol tartrate 25 mg b.i.d. 3. Rosuvastatin 5 mg daily. 4. Donepezil 5 mg daily. 5. Eliquis 2.5 mg b.i.d. 6. Amiodarone 200 mg daily. 7. The patient is supposed to be on Renvela 800 mg 3 times a day but she is not taking it. 8. Sensipar 30 mg daily. 9. She is taking "eye vitamins" twice a day. 10. Benadryl 25 mg at night. 11. Vitamin D3 2000 units daily. 12. Ultram 50 mg twice a day p.r.n. The patient was also recently diagnosed with and she is on prednisone 40 mg daily, day 02/04 today. ALLERGIES: Include CARLIN INHIBITORS, NONSTEROIDAL ANTI-INFLAMMATORY MEDICATIONS that the patient refuses to take due to a history of end-stage renal disease. FAMILY HISTORY: The patient's father at the age of 55 from [place]. Daughter has history of diabetes. Three brothers have history of cancer, one with throat cancer, one with prostate cancer, and third one with unknown cancer. SOCIAL HISTORY: The patient denies any tobacco, alcohol, or drug use. She is retired, lives with her daughter, Katya Busby, who is her healthcare proxy. REVIEW OF SYSTEMS: Please see history of present illness. The patient had been in her usual state of health until today. She is scheduled for her dialysis today as usual. She had been ambulating with her walker without any problems. She lives with her daughter. She is able to take care of her activities of daily living. During being changed today to the hospital gown, the patient was noted have a rash around her umbilical area. All the remaining 14 systems were reviewed with the patient and were otherwise negative. PHYSICAL EXAMINATION GENERAL: The patient is a pleasant 87-year-old female who is in no acute distress. Alert, awake, and oriented x3. VITAL SIGNS: Blood pressure of 192/76, heart rate of 80 and regular, respiratory rate 18, oxygen saturation 96% on room air, and temperature 98.4. HEENT: Head: Atraumatic, normocephalic. Eyes: Pupils are equal and reactive to light and accommodation. Oropharynx clear. Mucosa moist. NECK: Supple. No JVD. No bruits bilaterally. RESPIRATORY: Clear to auscultation bilaterally. CARDIOVASCULAR: Regular rate and rhythm. No murmur. ABDOMEN: Soft, nontender. Bowel sounds present in all 4 quadrants. EXTREMITIES: There is no edema on the left leg. The right leg is in a splint. Pulses are palpable on the left leg but the right leg was again is splinted. There is no clubbing or cyanosis on evaluation of both feet. NEUROLOGIC: Speech clear. Cranial nerves II through XII grossly intact. Motor strength is 5/5 bilaterally. SKIN: On evaluation of the skin, the patient has candidal intertrigo on her umbilical area. DIAGNOSTIC STUDIES/LAB DATA: White blood cell count of 13.3, hemoglobin of 10.7, hematocrit of 34, and platelets of 240. Sodium was 139, potassium 4.1, chloride 98, carbon dioxide 32, BUN 46, creatinine 4.8. Liver function tests were mildly increased with AST of 100, ALT of 103, alkaline phosphatase of 133, bilirubin of 0.5. Urinalysis showed normal specific gravity, +[address]: "No intracranial mass or hemorrhage noted." Ankle x-ray: "No radiographically apparent fracture or dislocation of the left ankle." Pelvic x-ray: "Old fracture of the right greater trochanter. If the patient's symptoms persist, recommend followup imaging. Status post open reduction and internal fixation of the intertrochanteric fracture of the left femur." Leg x-ray performed today, impression: "Comminuted and slightly displaced spiral fracture involving the distal right tibia and fibula." Chest x-ray, impression: "In the correct clinical setting, the constellation of findings could represent cardiogenic pulmonary edema." The patient's EKG showed sinus rhythm with a heart rate of 70 beats per minute with 1 PVC, prolonged FL interval, and no acute ST changes. Comparing with an EKG from January of 2017, it appears similar apart from that 1 PVC that was not present on previous EKG. ASSESSMENT AND PLAN: 1. Status post mechanical fall and right tib-fib fracture in this lady with end - stage renal disease and atrial fibrillation, on Eliquis. The patient wished to see Dr. Rene for orthopedic evaluation as Dr. Rene saw the patient before in regards to her hip fracture. Dr. Rene recommended starting the patient's Eliquis. She is going to be placed on heparin for DVT prophylaxis for the time being. Dr. Rene is going to evaluate the patient today. In regards to clearance for surgery, due to the patient's advanced stage end-stage renal disease, history of cardiac arrhythmia, the patient would be moderate to high risk for operative intervention and assuming that her dialysis will be performed in a timely manner, she is an acceptable candidate and medically optimized if procedure needed to be performed. 2. In regards to the patient's end-stage renal disease, I discussed the case with Dr. Choi. It is possible that the patient's dialysis may need to be postponed by 1 day. So far, the patient is not acidotic and not kalemic and hemodynamically stable, although her chest x-ray shows vascular congestion, she is not hypoxic. At this point, I believe she is okay to have her dialysis postponed by 1 day if that were to be needed. 3. For the patient's paroxysmal atrial fibrillation, currently she is in sinus rhythm. Her Eliquis is going to be held due to possibility of evaluation for surgery in the near future. We will continue amiodarone. 4. For the patient's hypertension, we will continue the patient's metoprolol. 5. The patient has history of recent bronchitis. She has no evidence of bronchitis on evaluation. She had been on prednisone 40 mg for the past 5 days and I will stop it today. 6. The patient's code status was discussed with the patient and the patient's healthcare proxy, Katya. They both wished the patient to be fully resuscitated. TIME SPENT: Approximately 75 minutes was spent on admission of this patient. ADDENDUM: Please note that the patient has mild elevation of the liver function tests and is otherwise asymptomatic. She denies any abdominal pain. I suspect it may be related to mild hepatic hypoperfusion. We will recheck it in the morning. The patient already received intravenous fluids in the emergency department and they are not going to be continued due to that her dialysis day is postponed to tomorrow. [id number]/[facility] #: [id number]/[facility] #: [id number] KELLY
[2017-07-13] MEDS: oxyCODONE/Acetamin 5/325 MG* TAB PO PRN ×2 (13:39→19:02)
[2017-07-13] MEDS: Heparin VIAL(*) 5000 UNITS/ML VIAL (FIVE THOUSAND) SUBCUT SCH ×2 (13:39→21:34)
--- NOTE | 2017-07-13 14:00 | HP ---
ADDENDUM: Please note that the patient has mild elevation of the liver function tests and is otherwise asymptomatic. She denies any abdominal pain. I suspect it may be related to mild hepatic hypoperfusion. We will recheck it in the morning. The patient already received intravenous fluids in the emergency department and they are not going to be continued due to that her dialysis day is postponed to tomorrow. [id number]/[facility] #: [id number] MTDD
[2017-07-13 15:19] LABS: Magnesium 2.2 mg/dL (1.9-2.7); Phosphorus 3.1 mg/dL (2.5-5.0)
[2017-07-13] MEDS: Morphine INJ* 2 MG/ML 1 ML SYRINGE (TWO MG - NEW SYRINGE VERSION) IV PRN ×2 (15:49→21:34)
[2017-07-13] MEDS ORDERED: diPHENhydraMINE PO* 25 MG PO SCH (21:00)
[2017-07-13] MEDS: Cinacalcet TAB* 30 MG PO SCH (21:31)
[2017-07-13] MEDS: Donepezil TAB* 5 MG PO SCH (21:32)
[2017-07-13] MEDS: Amiodarone TAB* 200 MG PO SCH (21:32)
--- NOTE | 2017-07-13 22:17 | CONS ---
ORTHOPEDIC CONSULT NOTE: DATE OF CONSULT: 07/13/17 CHIEF COMPLAINT: Right leg pain. HISTORY OF PRESENT ILLNESS: Ms. Busby is an 87-year-old female with multiple medical comorbidities who reports that she attempted to stand up this morning when her leg gave out and she fell on to her right side. She immediately had severe 10/10 right leg pain. Any attempt to move the right leg or weight bear increased her pain. Immobilization and rest decreased her pain. She was brought to the [facility] and treated for head trauma from the fall as well as diagnosed with the right tibia and fibula fracture. I have treated the patient and her family before and they did request my consultation. I agreed to see them today. PAST MEDICAL HISTORY: End-stage renal disease, on dialysis; sick sinus syndrome , status post pacemaker placement; paroxysmal atrial fibrillation; COPD; asthma ; hypertension; hyperlipidemia; anemia of chronic disease; anxiety; depression; spinal stenosis; arthritis; bilateral hip fractures. PAST SURGICAL HISTORY: Right foot ORIF; bilateral hip fracture ORIF, right side in 2017, left side in 2016; dialysis graft in right forearm; prior hysterectomy; prior pacemaker placement; history of spinal fusion. HOME MEDICATIONS: 1. Allopurinol. 2. Metoprolol. 3. Rosuvastatin. 4. Donepezil. 5. Eliquis. 6. Amiodarone. 7. Renvela. 8. Sensipar. 9. Eye vitamins. 10. Benadryl. Please see med reconciliation form for doses. ALLERGIES: CARLIN INHIBITORS, NSAIDS. FAMILY HISTORY: Paternal [place]. SOCIAL HISTORY: The patient lives with her daughter, Katya Busby, who is her healthcare proxy. Normally ambulates with a rolling walker. No tobacco, alcohol, or recreational drug use. REVIEW OF SYSTEMS: 14 systems were reviewed with the patient. Positive for right leg pain, history of arthritis, history of abnormal heart rhythm, history of chronic renal disease. Negative for fevers, chills, chest pain, or shortness of breath. Otherwise, the patient reports review of systems is negative or not relevant. PHYSICAL EXAM: Vital Signs: Temperature 98, pulse of 76, blood pressure 130/ 48. General: The patient is an elderly female, in no apparent distress. Alert and oriented x3. Pleasant mood and appropriate affect. Accompanied by her daughter at the bedside. HEENT: Atraumatic and normocephalic. Pupils equal and reactive to light. Chest: Unlabored breathing. Right lower extremity, the patient has a splint on the right lower leg. This is a posterior splint. She can wiggle her great toe and has sensation dorsally and along the plantar surface, less than 3 seconds capillary refill. Any motion at the leg causes significant pain. DIAGNOSTIC STUDIES/LAB DATA: Labs, white blood cells 13.3, hematocrit 34, platelets 240. Sodium 139, potassium 4.1, chloride 98, BUN and creatinine 46 and 4.8. Urinalysis is normal. Studies: Brain CT showed no acute injury. Multiple views of the right leg show distal tibia and fibula fractures along the junction of the middle and distal third. This is a long spiral type fracture with some displacement on AP and lateral views. ASSESSMENT AND PLAN: Ms. Busby is an 87-year-old female, status post fall in her home with displaced closed right tibia and fibula fractures along the distal shaft. The patient, her daughter, and I discussed the operative and nonoperative treatment options. The patient's daughter feels it is critical to mobilize her mother as soon as possible. This seems to support proceeding with operative intervention and stabilization. The patient has multiple medical comorbidities and due to her age, is likely a high risk for surgery. I did agree to consult with this family, who I certainly care for. They understand that this is not my speciality and I have recommended Dr. Sheehan in our orthopedic group to see the patient. They understand I defer to Dr. Sheehan 's opinion on whether surgery or nonoperative treatment is appropriate. For now, the patient will have p.r.n. analgesia. She should have elevation, ice of the right lower extremity. She will be non-weightbearing right lower extremity. She should have neurovascular checks. I have discussed this case with Dr. Sheehan, who agrees to see the patient later today. Please call me with any questions. [id number]/[facility] #: [id number] KELLY
--- NOTE | 2017-07-14 00:46 | ED ---
Shaka Agudelo Angela, scribed for Anna Hill MD on 07/13/17 at 0608 . Adult Trauma - HPI Summary HPI Summary: This pt is a 87 y/o female accompanied by her daughter presenting to [facility] c/o lower extremity pain s/p fall today. Pt reports she fell last night at 1700 but got up and was able to ambulate. Today, pt woke up to go to the bathroom when her legs gave out and she fell. Pt states she struck the back of her head on the floor. She denies LOC. Pt c/o right hip pain, right lower leg pain ( starting at the knee) and left posterior knee pain. She denies SOB, blurry vision, nausea, vomiting. Pt has had a left hip replacement. PMHx: HTN, end stage renal failure, dialysis 3 times per week. - History of Current Complaint Chief Complaint: EDExtremityLower Stated Complaint: FALL, LEG PAIN Time Seen by Provider: 07/13/17 05:10 Hx Obtained From: Patient Hx Last Menstrual Period: n/a Mechanism of Injury: Fall Ambulatory at the Scene: Yes Loss of Consciousness: no loss of consciousness Onset/Duration: Started Hours Ago, Still Present Onset of Pain: Hours Pain Intensity: 10 Pain Scale Used: 0-10 Numeric Location: Head, Extremities Aggravating Factor(s): Nothing Alleviating Factor(s): Nothing Associated Signs & Symptoms: Positive: Ecchymosis. Negative: SOB, Chest Pain, Loss of Consciousness, Numbness/Weakness - Additional Pertinent History Primary Care Physician: [id number] - Allergy/Home Medications Allergies/Adverse Reactions: Allergies Allergy/AdvReac Type Severity Reaction Status Date / Time CARLIN Inhibitors AdvReac Coughing Verified 07/13/17 05:09 NSAIDs AdvReac AVOIDS DUE Verified 07/13/17 05:09 TO ESRD PMH/Surg Hx/FS Hx/Imm Hx Endocrine/Hematology History: Reports: Hx Anemia Denies: Hx Diabetes, Hx Thyroid Disease Cardiovascular History: Reports: Hx Hypertension, Hx Pacemaker/ICD, Other Cardiovascular Problems/Disorders - SICK SINUS SYNDROME Respiratory History: Reports: Hx Asthma, Hx Chronic Bronchitis, Hx Chronic Obstructive Pulmonary Disease (COPD), Other Respiratory Problems/Disorders - 02 2L PRN SOB. HAS NOT USED IN 3 WEEKS GI History: Reports: Other GI Disorders - DIARRHEA FOR THE PAST 24 HOURS- STATES IS FEELING BETTER- Denies: Hx Ulcer History: Reports: Hx Chronic Renal Failure, Hx Dialysis, Other Problems/ Disorders - Dialysis Musculoskeletal History: Reports: Hx Arthritis, Hx Back Problems Sensory History: Reports: Hx Contacts or Glasses - GLASSES, Hx Glaucoma - BILAT , Hx Legally Blind Denies: Hx Cataracts, Hx Hearing Aid Opthamlomology History: Reports: Hx Contacts or Glasses - GLASSES, Hx Glaucoma - BILAT, Hx Legally Blind Denies: Hx Cataracts Psychiatric History: Reports: Hx Anxiety - controlled, Hx Depression - controlled - Cancer History Hx Chemotherapy: No - Surgical History Surgery Procedure, Year, and Place: 1955-HYSTERECTOMY. BILAT CATARACT - [place]. RIGHT ARM FISTULA -[facility] 2012. BACK SURGERY-[facility] 2003. ORIF RIGHT ANKLE 11/15 [facility], Left hip fx 08/2016 Hx Anesthesia Reactions: No - Immunization History Date of Tetanus Vaccine: 2016 Date of Influenza Vaccine: 2015 Infectious Disease History: No Infectious Disease History: Reports: Hx Hepatitis - 1955- "YELLOW JAUNDICE", Hx of Known/Suspected MRSA Denies: Hx Human Immunodeficiency Virus (HIV), Traveled Outside the [place] in Last 30 Days - Family History Known Family History: Positive: Hypertension - Social History Alcohol Use: None Substance Use Type: Reports: None Hx Tobacco Use: No Smoking Status (MU): Never Smoked Tobacco Have You Smoked in the Last Year: No Review of Systems Negative: Fever Negative: Blurred Vision Negative: Shortness Of Breath Negative: Vomiting, Nausea Positive: Other - pain in lower extremities, right hip pain Positive: Bruising - in right lower leg Negative: Headache, Numbness All Other Systems Reviewed And Are Negative: Yes Physical Exam Triage Information Reviewed: Yes Vital Signs On Initial Exam: Initial Vitals Temp Pulse Resp BP Pulse Ox 98.4 F 80 18 192/76 96 07/13/17 05:07 07/13/17 05:07 07/13/17 05:07 07/13/17 05:07 07/13/17 05:07 Vital Signs Reviewed: Yes Appearance: Positive: Well-Nourished Skin: Positive: Warm, Dry, Other - ecchymosis on right lower leg Head/Face: Positive: Normal Head/Face Inspection Eyes: Positive: Normal ENT: Positive: Normal ENT inspection Neck: Positive: Supple, Nontender Respiratory/Lung Sounds: Positive: Clear to Auscultation, Breath Sounds Present Cardiovascular: Positive: Normal, RRR Musculoskeletal: Positive: Edema Right, Other - pain in bilateral lower extremities, left posterior knee, right lower leg, and right hip Neurological: Positive: Normal, Sensory/Motor Intact, Alert, Oriented to Person Place, Time Psychiatric: Positive: Normal - [place] Coma Scale Best Eye Response: 4 - Spontaneous Best Motor Response: 6 - Obeys Commands Best Verbal Response: 5 - Oriented Coma Scale Total: 15 Procedures - Splinting Hand-Made Type: fiberglass Splint: posterior walking Diagnostics - Vital Signs Vital Signs Temp Pulse Resp BP Pulse Ox 07/13/17 05:38 18 07/13/17 05:07 98.4 F 80 18 192/76 96 - Laboratory Result Diagrams: 07/13/17 05:25 07/13/17 05:25 Lab Statement: Any lab studies that have been ordered have been reviewed, and results considered in the medical decision making process. - Radiology Left ankle XR Xray Interpretation: No Acute Changes Radiology Interpretation Completed By: ED Physician Chest XR Xray Interpretation: Positive (See Comments) - Cardiomegaly Radiology Interpretation Completed By: ED Physician Right lower leg XR Xray Interpretation: Positive (See Comments) - Spiral fracture of the tibia and fibula Radiology Interpretation Completed By: ED Physician Pelvis XR Radiology Interpretation Completed By: Radiologist - Pending official interpretation from radiologist. See [facility]. - CT Brain CT CT Interpretation: No Acute Changes - IMPRESSION: Normal head. ED physician has reviewed this radiology report and agrees. CT Interpretation Completed By: Radiologist Re-Evaluation - Re-Evaluation First Eval Re-Evaluation Time: 06:51 Comment: I reviewed the XR results with the pt and daughter. Adult Trauma Course/Dx - Course Assessment/Plan: Pt is a 87 y/o female who presents with bilateral lower extremity pain and right hip pain s/p fall today. In the ED, the pt was given morphine. Brain CT is negative. Right lower leg XR shows spiral fracture of the tibia and fibula. I placed a posterior splint on the right leg. I discussed the pt's case with Dr. Owens, hospitalist, who will admit the pt. - Diagnoses Provider Diagnoses: Tibia/fibula fracture, End stage renal disease, Weakness - Physician Notifications Discussed Care Of Patient With: Sheila Owens Time Discussed With Above Provider: 07:10 Instructed by Provider To: Other - I discussed the pt's case with Dr. Owens, who has agreed to admit the pt. Discharge - Discharge Plan Condition: Stable Disposition: ADMITTED TO [facility] Referrals: Margoth Garcia MD [Primary Care Provider] - The documentation as recorded by the Shaka rutherford Angela accurately reflects the service I personally performed and the decisions made by me, Anna Hill MD.
[2017-07-14] MEDS: oxyCODONE/Acetamin 5/325 MG* TAB PO PRN ×3 (01:01→15:14)
[2017-07-14] MEDS: Heparin VIAL(*) 5000 UNITS/ML VIAL (FIVE THOUSAND) SUBCUT SCH ×3 (05:23→20:42)
[2017-07-14 06:23] LABS: Hematocrit 28 % (35-47); Hemoglobin 9.2 g/dl (12.0-16.0); Mean Corpuscular HGB Conc 33 g/dl (31-36); Mean Corpuscular Hemoglobin 31 pg (27-31); Mean Corpuscular Volume 94 fL (80-97); Mean Platelet Volume 8 um3 (7.4-10.4); Red Cell Distribution Width 18 % (10.5-15); White Blood Count 10.7 10^3/ul (3.5-10.8)
[2017-07-14 06:38] LABS: Albumin 2.7 g/dL (3.2-5.2); BUN/Creatinine Ratio 9.8 (8-20); Calcium 8.2 mg/dL (8.6-10.3); Direct Bilirubin 0.1 mg/dL (0.03-0.18); EGFR African American 8.9 (>60); EGFR Non-African American 6.9 (>60); Globulin 2.8 g/dL (2-4); Indirect Bilirubin 0.3 mg/dL (0.3-1.0); Potassium 4.7 mmol/L (3.5-5.0); Total Bilirubin 0.4 mg/dL (0.2-1.0); Total Protein 5.5 g/dL (6.4-8.9)
[2017-07-14] MEDS: Morphine INJ* 2 MG/ML 1 ML SYRINGE (TWO MG - NEW SYRINGE VERSION) IV PRN (08:00)
[2017-07-14] MEDS: Allopurinol TAB* 100 MG PO SCH (08:01)
[2017-07-14] MEDS: Metoprolol Tartrate TAB* 25 MG PO SCH ×2 (08:01→20:34)
--- NOTE | 2017-07-14 10:37 | PN ---
Progress Note - Progress Note Date of Service: 07/14/17 SOAP: Subjective: Consult note placed by my partner Dr. Rene yesterday. I saw the patient and spoke with her and one of her daughters yesterday. We discussed treatment of the patient's right lower leg fractures and then I placed a new short leg splint. I just visited with the patient. No complaints of head or neck pain. Complains of right lower leg pain, better in the new splint. Patient's last dose of Eliquis was night, 07/12/17. Patient describes distant past history of ex-fix right ankle followed by ORIF followed by removal of hardware. Objective: NAD, comfortable RLE - Yesterday with splint change, the patient had much ecchymosis and swelling about the lower leg, but skin intact. She had a significant rotational deformity of the lower leg of approximately 30 degrees externally rotated. - Splint in place today - NVID Selected Entries 07/14/17 07:47 Temperature 97.6 F Pulse Rate 74 Respiratory 18 Rate Blood Pressure 122/43 (mmHg) O2 Sat by Pulse 100 Oximetry Laboratory Tests 07/13/17 07/13/17 07/13/17 05:25 05:25 06:30 WBC 13.3 H Hct 34 L Plt Count 240 Creatinine 4.87 H Troponin I 0.03 Urine Nitrate Negative Ur Leukocyte Esterase Negative 07/14/17 07/14/17 05:38 05:38 WBC 10.7 Hct 28 L Plt Count 169 Creatinine 5.82 H Troponin I Urine Nitrate Ur Leukocyte Esterase x-rays left lower leg: right tibia and fibula fractures, juncture of middle and distal thirds, oblique versus spiral, with angulation of ~ 5%, but no significant translational deformity. Assessment: HD 2 right tibia, fibula shaft fractures Plan: - Yesterday, I discussed at length benefit, risks, and potential complications of non-operative and operative treatment of these fractures. Both treatment courses are reasonable. Operative treatment would likely significantly speed the patient's ability to weight bear with some resulting reduced medical risks of immobilization and limited weight bearing. The patient and her daughter opted to proceed with surgery. - Given the patient's poor renal function, I opt to delay surgery 2.5 days from last dose of Eliquis to minimize bleeding. While platelet count is within normal limits, I recognize that plates may be dysfunctional, although hemodialysis today should help with that. - Hemodialysis planned for today per Hospitalist - NPO post midnight - Type & screen - To the OR in the AM for ORIF right tibia and possibly fibula fractures - Medical management today per Hospitalist. I will ask them to explicitly state that patient is optimized for surgery. - Have discussed briefly with anesthesia
[2017-07-14] MEDS ORDERED: Heparin DIALYSIS ONLY(*) 1,000 UNITS/ML VIAL DIALYSIS ONE (14:00)
[2017-07-14] MEDS ORDERED: Epoetin Alfa* 3,000 UNITS/ML VIAL IV ONE (14:00)
[2017-07-14] MEDS ORDERED: Epoetin Alfa* 2,000 UNITS/ML VIAL IV ONE (14:00)
[2017-07-14] MEDS ORDERED: diPHENhydraMINE PO* 25 MG PO PRN (14:27)
--- NOTE | 2017-07-14 14:30 | PN ---
Subjective Date of Service: 07/14/17 Interval History: Patient seen and examined at bedside during dialysis. Patient states pain controlled. She states she feels tired today. She denies shortness of breath. She is wearing oxygen but states she wears it intermittently at home. Family History: Unchanged from Admission Social History: Unchanged from Admission Past Medical History: Unchanged from Admission Objective Active Medications: Acetaminophen (Tylenol Tab*) 650 mg PO Q4H PRN Allopurinol (Zyloprim Tab*) 100 mg PO QAM MARGARET Amiodarone HCl (Cordarone Tab*) 200 mg PO BEDTIME MARGARET Cinacalcet (Sensipar Tab*) 30 mg PO BEDTIME MARGARET Diphenhydramine HCl (Benadryl Po*) 25 mg PO BEDTIME MARGARET Donepezil HCl (Aricept Tab*) 5 mg PO BEDTIME MARGARET Heparin Sodium (Porcine) (Heparin Vial(*)) 5,000 units SUBCUT Q8HR MARGARET Metoprolol Tartrate (Lopressor Tab*) 25 mg PO BID MARGARET Morphine Sulfate (Morphine Inj (Syringe)*) 2 mg IV Q4H PRN Oxycodone/Acetaminophen (Percocet 5/325 Tab*) 1 tab PO Q4H PRN 07/14/17 07/14/17 07/14/17 07:47 08:00 09:00 Temperature 97.6 F Pulse Rate 74 Respiratory 18 15 14 Rate Blood Pressure 122/43 (mmHg) O2 Sat by Pulse 100 Oximetry Oxygen Devices in Use Now: Nasal Cannula Appearance: sitting up in bed, NAD Eyes: No Scleral Icterus, PERRLA Ears/Nose/Mouth/Throat: NL Teeth, Lips, Gums Neck: NL Appearance and Movements; NL JVP Respiratory: Symmetrical Chest Expansion and Respiratory Effort, Clear to Auscultation Cardiovascular: NL Sounds; No Murmurs; No JVD, RRR Abdominal: NL Sounds; No Tenderness; No Distention Extremities: No Edema, - - L leg in splint Neurological: Alert and Oriented x 3, NL Muscle Strength and Tone Lines/Tubes/Other Access: Clean, Dry and Intact Peripheral IV Nutrition: Taking PO's Result Diagrams: 07/14/17 05:38 07/14/17 05:38 Assess/Plan/Problems-Billing Patient is an 87 y/o F w/ hx of atrial fibrillation (on eliquis), ESRD (on HD), sick sinus syndrome s/p PPM who presented to the ER 07/13/17 after a mechanical fall found to have a R spital tibia/fibula fracture. - Patient Problems (1) Fracture of tibia with fibula, right, closed Comment: Appreciate Orthopedic input. Patient is moderate to high risk for surgery given her hx of ESRD, cardiac arrhythmia. At this point she is optimized for surgery and can proceed without any further testing. Plan to dialyze today. Continue pain control with PRN Percocet. (2) ESRD (end stage renal disease) on dialysis Comment: Having dialysis today. Regular days are M/W/F. Careful with IVF. (3) Atrial fibrillation Comment: Currently in sinus rhythm. Continue Amiodarone and Lopressor. (4) Hypertension Comment: BP controlled; Continue Lopressor (5) COPD (chronic obstructive pulmonary disease) Comment: Not in exacerbation but completed treatment for acute bronchitis with prednisone yesterday. (6) DVT prophylaxis Comment: Heparin SQ - stop at 2200, SCDs (7) Full code status Status and Disposition: Inpatient for right tib/fibu fracture. May need STR or acute rehab s/p repair.
[2017-07-14] MEDS: Cinacalcet TAB* 30 MG PO SCH (20:33)
[2017-07-14] MEDS: Amiodarone TAB* 200 MG PO SCH (20:34)
[2017-07-14] MEDS: Donepezil TAB* 5 MG PO SCH (20:34)
[2017-07-14] MEDS: [UNRECOGNIZED DRUG - OTHER] PO SCH (20:34)
[2017-07-15] MEDS: Morphine INJ* 2 MG/ML 1 ML SYRINGE (TWO MG - NEW SYRINGE VERSION) IV PRN ×3 (00:54→23:56)
[2017-07-15] MEDS: oxyCODONE/Acetamin 5/325 MG* TAB PO PRN ×3 (00:55→21:09)
[2017-07-15 06:43] LABS: Hematocrit 27 % (35-47); Hemoglobin 8.6 g/dl (12.0-16.0); Mean Corpuscular HGB Conc 32 g/dl (31-36); Mean Corpuscular Hemoglobin 31 pg (27-31); Mean Corpuscular Volume 95 fL (80-97); Mean Platelet Volume 8 um3 (7.4-10.4); Red Blood Count 2.84 10^6/ul (4.0-5.4); Red Cell Distribution Width 19 % (10.5-15); White Blood Count 8.4 10^3/ul (3.5-10.8)
[2017-07-15 06:55] LABS: BUN/Creatinine Ratio 9.7 (8-20); Calcium 7.4 mg/dL (8.6-10.3); EGFR African American 14.8 (>60); EGFR Non-African American 11.5 (>60); Potassium 4.6 mmol/L (3.5-5.0)
[2017-07-15] MEDS ORDERED: fentaNYL* 50 MCG/ML 2 ML VIAL (100 MCG VIAL) ONE ×3 (08:01→13:10)
[2017-07-15] MEDS ORDERED: Midazolam* 1 MG/ML 2 ML VIAL (2 MG) ONE (08:01)
--- NOTE | 2017-07-15 08:16 | PN ---
Progress Note - Progress Note Date of Service: 07/15/17 SOAP: Subjective: Pain in right lower leg. Daughter, who is HCP and power of claim attorney and signs consents, is bedside. Had dialysis yesterday. Optimized for surgery per Hospitalist- moderate to high risk for surgery. Objective: RLE - Splint in place - NVID Selected Entries 07/15/17 07:45 Temperature 98.3 F Pulse Rate 74 Respiratory 16 Rate Blood Pressure 147/60 (mmHg) O2 Sat by Pulse 100 Oximetry Laboratory Tests 07/13/17 07/13/17 07/14/17 05:25 05:25 05:38 WBC Hct 34 L 28 L Plt Count 240 169 INR (Anticoag Therapy) Sodium 139 Potassium 4.1 Creatinine 4.87 H Troponin I 0.03 07/14/17 07/15/17 07/15/17 05:38 06:10 06:10 WBC 8.4 Hct 27 L Plt Count 165 INR (Anticoag Therapy) 0.96 Sodium 135 Potassium 4.7 Creatinine 5.82 H Troponin I 07/15/17 06:10 WBC Hct Plt Count INR (Anticoag Therapy) Sodium 132 L Potassium 4.6 Creatinine 3.72 H Troponin I Assessment: HD 3 right tibia fibula fracture Plan: - To OR today for a right tibia ORIF and possibly right fibula ORIF - Continue NPO
[2017-07-15] MEDS: Allopurinol TAB* 100 MG PO SCH (08:43)
[2017-07-15] MEDS: Metoprolol Tartrate TAB* 25 MG PO SCH ×2 (08:43→21:16)
[2017-07-15] MEDS: [UNRECOGNIZED DRUG - OTHER] PO SCH ×2 (08:43→21:10)
[2017-07-15] MEDS ORDERED: ceFAZolin 2 GM PREMIX (*) 2 GM/50 ML BAG IVPB ONE (08:47)
[2017-07-15] MEDS ORDERED: Famotidine IV* 10 MG/ML 2 ML (20 mg) ONE (08:48)
[2017-07-15] MEDS ORDERED: Lidocaine 2% PF * 5 ML VIAL ONE (08:48)
[2017-07-15] MEDS ORDERED: Dexamethasone IV* 4 MG/ML 1 ML (4 MG) ONE (08:48)
[2017-07-15] MEDS ORDERED: Propofol* 10 MG/ML 20 ML BTL IV PUSH ONE (08:48)
[2017-07-15] MEDS ORDERED: Cisatracurium* 2 MG/ML MDV 5 ML ONE (08:48)
[2017-07-15] MEDS ORDERED: DiMENhydriNATE IV* 50 MG/ML VIAL IV PUSH PRN (09:56)
[2017-07-15] MEDS ORDERED: Nalbuphine* 20 MG/ML 1 ML VIAL IV PRN (09:56)
[2017-07-15] MEDS ORDERED: Acetaminophen TAB* 325 MG PO PRN ×2 (09:56→12:39)
[2017-07-15] MEDS ORDERED: Ondansetron INJ* 2 MG/ML VIAL IV PRN ×2 (09:56→12:39)
[2017-07-15] MEDS ORDERED: NS 0.9% 1000 ML* 1,000 ML IV SCH (10:00)
[2017-07-15] MEDS ORDERED: Lidocaine 1% MPF wEPI 200,000* 30 ML SDV ONE (10:23)
--- NOTE | 2017-07-15 12:37 | RAD ---
INDICATION: Traumatic fracture right lower leg, right tibial rodding. COMPARISON: Comparison is made with a prior x-ray study of the right lower leg from July 13, 2017. TECHNIQUE: 272 seconds of intermittent fluoroscopic guidance were provided and 16 spot films of the right lower leg were obtained in the operating room. FINDINGS: The films demonstrate placement of an intramedullary olvin spanning the tibia and the fracture of the distal diaphysis and metaphysis of the tibia. The intramedullary olvin is transfixed with screws proximally and distally. IMPRESSION: INTRAOPERATIVE CONTROL FILMS. CPT II Codes: 6045F
[2017-07-15] MEDS ORDERED: oxyCODONE/Acetamin 5/325 MG* TAB PO PRN (12:39)
[2017-07-15] MEDS ORDERED: Morphine INJ* 2 MG/ML 1 ML CARPUJECT IV PRN (12:39)
[2017-07-15] MEDS ORDERED: Magnesium Hydroxide LIQ* 30 ML UDC PO PRN (12:39)
[2017-07-15] MEDS ORDERED: diPHENhydraMINE PO* 25 MG PO PRN (12:39)
[2017-07-15] MEDS ORDERED: oxyCODONE/Acetamin 5/325 MG* TAB ONE (13:10)
[2017-07-15] MEDS: fentaNYL* 50 MCG/ML 2 ML VIAL (100 MCG VIAL) IV PRN ×3 (13:13→13:24)
--- NOTE | 2017-07-15 13:46 | RAD ---
INDICATION: Traumatic fracture right lower leg status post tibial nailing. COMPARISON: Comparison is made with a prior x-ray study from July 13, 2017. TECHNIQUE: 2 views of the right lower leg were obtained. FINDINGS: The bones are visualized through a plaster cast. There is an oblique fracture of the distal diaphysis and metaphysis of the tibia. The patient is status post placement of an intramedullary olvin spanning the fracture fragments transfixed with screws proximally and distally. There is minimal medial angulation of the distal fragment. IMPRESSION: STATUS POST OPERATIVE REDUCTION INTERNAL FIXATION OF A FRACTURE OF THE DISTAL TIBIA.
--- NOTE | 2017-07-15 14:21 | PN ---
Subjective Date of Service: 07/15/17 Interval History: Patient seen post-operatively. She denies pain at this point. She tolerated surgery well. NWB on L. She denies SOB. Family History: Unchanged from Admission Social History: Unchanged from Admission Past Medical History: Unchanged from Admission Objective Active Medications: Acetaminophen (Tylenol Tab*) 650 mg PO ONCE PRN Acetaminophen (Tylenol Tab*) 650 mg PO Q4H PRN Allopurinol (Zyloprim Tab*) 100 mg PO QAM MARGARET Amiodarone HCl (Cordarone Tab*) 200 mg PO BEDTIME MARGARET Apixaban (Eliquis) 2.5 mg PO BID MARGARET Cinacalcet (Sensipar Tab*) 30 mg PO BEDTIME MARGARET Dimenhydrinate (Dramamine Iv*) 25 mg IV PUSH ONCE PRN Diphenhydramine HCl (Benadryl Po*) 25 mg PO BEDTIME PRN Docusate Sodium (Colace Cap*) 100 mg PO BID MARGARET Donepezil HCl (Aricept Tab*) 5 mg PO BEDTIME MARGARET Fentanyl Citrate (Fentanyl*) 25 mcg IV Q5M PRN Cefazolin Sodium 1 gm/ Sodium (Chloride) 50 mls @ 200 mls/hr IVPB Q8H MARGARET Magnesium Hydroxide (Milk Of Magnesia Liq*) 30 ml PO Q6H PRN Metoprolol Tartrate (Lopressor Tab*) 25 mg PO BID MARGARET Morphine Sulfate (Morphine Inj (Syringe)*) 2 mg IV Q4H PRN Nalbuphine HCl (Nubain*) 2.5 mg IV ONCE PRN Pto:Eye Vitamin And (Mineral (Savision)) 2 admin PO BID MARGARET Ondansetron HCl (Zofran Inj*) 2 mg IV ONCE PRN Ondansetron HCl (Zofran Inj*) 4 mg IV Q6H PRN Oxycodone/Acetaminophen (Percocet 5/325 Tab*) 1 tab PO Q3H PRN Oxycodone/Acetaminophen (Percocet 5/325 Tab*) 2 tab PO Q3H PRN Sertraline HCl (Zoloft*) 50 mg PO BEDTIME [facility] Vital Signs 07/14/17 07/14/17 07/14/17 15:14 15:32 17:10 Temperature 98.2 F Pulse Rate 71 Respiratory 16 20 15 Rate Blood Pressure 150/55 (mmHg) O2 Sat by Pulse 100 Oximetry 07/14/17 07/14/17 07/14/17 19:13 20:00 23:16 Temperature 97.8 F 97.5 F Pulse Rate 71 73 Respiratory 22 18 16 Rate Blood Pressure 122/36 160/57 (mmHg) O2 Sat by Pulse 100 99 Oximetry 07/15/17 07/15/17 07/15/17 00:54 00:55 01:54 Temperature Pulse Rate Respiratory 18 18 18 Rate Blood Pressure (mmHg) O2 Sat by Pulse Oximetry 07/15/17 07/15/17 07/15/17 02:55 03:25 07:45 Temperature 97.6 F 98.3 F Pulse Rate 81 74 Respiratory 16 16 16 Rate Blood Pressure 150/54 147/60 (mmHg) O2 Sat by Pulse 100 100 Oximetry 07/15/17 07/15/17 07/15/17 08:00 12:42 12:45 Temperature 99.3 F Pulse Rate 75 71 Respiratory 16 20 16 Rate Blood Pressure 135/55 145/64 (mmHg) O2 Sat by Pulse 97 97 Oximetry 07/15/17 07/15/17 07/15/17 12:50 12:55 13:00 Temperature Pulse Rate 70 72 71 Respiratory 20 18 14 Rate Blood Pressure 137/49 148/62 148/49 (mmHg) O2 Sat by Pulse 99 100 100 Oximetry 07/15/17 07/15/17 07/15/17 13:10 13:13 13:18 Temperature Pulse Rate Respiratory 14 14 14 Rate Blood Pressure (mmHg) O2 Sat by Pulse Oximetry 07/15/17 07/15/17 13:21 13:24 Temperature Pulse Rate 73 Respiratory 19 19 Rate Blood Pressure 159/71 (mmHg) O2 Sat by Pulse 100 Oximetry Oxygen Devices in Use Now: Nasal Cannula Appearance: sitting up in bed, NAD Eyes: No Scleral Icterus, PERRLA Ears/Nose/Mouth/Throat: NL Teeth, Lips, Gums Neck: NL Appearance and Movements; NL JVP Respiratory: Symmetrical Chest Expansion and Respiratory Effort, Clear to Auscultation Cardiovascular: NL Sounds; No Murmurs; No JVD Abdominal: NL Sounds; No Tenderness; No Distention Extremities: No Edema Skin: No Rash or Ulcers Neurological: Alert and Oriented x 3, NL Muscle Strength and Tone Lines/Tubes/Other Access: Clean, Dry and Intact Peripheral IV Nutrition: Taking PO's Result Diagrams: 07/15/17 06:10 07/15/17 06:10 Assess/Plan/Problems-Billing Patient is an 87 y/o F w/ hx of atrial fibrillation (on eliquis), ESRD (on HD), sick sinus syndrome s/p PPM who presented to the ER 07/13/17 after a mechanical fall found to have a R spital tibia/fibula fracture. - Patient Problems (1) Fracture of tibia with fibula, right, closed Comment: POD#0 of ORIF. Pain control with percocet. Check H/H tomorrow. Plan for dialysis tomorrow. Eliquis restarted. (2) ESRD (end stage renal disease) on dialysis Comment: Dialysis planned for tomorrow. Check labs in AM. (3) Atrial fibrillation Comment: Currently in sinus rhythm. Continue Amiodarone and Lopressor. (4) Hypertension Comment: BP controlled; Continue Lopressor (5) COPD (chronic obstructive pulmonary disease) Comment: Not in exacerbation but completed treatment for acute bronchitis with prednisone 07/13. (6) DVT prophylaxis Comment: Eliquis to restart tonight. (7) Full code status Status and Disposition: Inpatient for right tib/fib fracture. May need STR as she is NWB on L.
[2017-07-15] MEDS: ceFAZolin 1 GM VIAL(*) 1 GM in NS 0.9% 50 ML* 50 ML IVPB SCH (18:08)
[2017-07-15] MEDS: Docusate CAP* 100 MG PO SCH (21:08)
[2017-07-15] MEDS: Donepezil TAB* 5 MG PO SCH (21:09)
[2017-07-15] MEDS: Amiodarone TAB* 200 MG PO SCH (21:09)
[2017-07-15] MEDS: Cinacalcet TAB* 30 MG PO SCH (21:10)
[2017-07-15] MEDS: Sertraline* 50 MG TAB PO SCH (21:10)
[2017-07-16] MEDS: ceFAZolin 1 GM VIAL(*) 1 GM in NS 0.9% 50 ML* 50 ML IVPB SCH ×2 (01:04→08:48)
--- NOTE | 2017-07-16 01:10 | OP ---
DATE OF OPERATION: 07/15/17 - ROOM #405 DATE OF : 32 SURGEON: Salazar Sheehan MD ASSISTANT CORPORATE SECRETARY: WALTER Sewell ANESTHESIOLOGIST: Evelyne Hunt MD ANESTHESIA: General anesthesia. PRE-OP DIAGNOSIS: Right tibia and fibula shaft fractures. POST-OP DIAGNOSIS: Right tibia and fibula shaft fractures. OPERATIVE PROCEDURE: Open reduction internal fixation, right tibia shaft fracture with intramedullary nail. IV FLUIDS: 500 cc crystalloid. ANTIBIOTICS: 2 g Ancef IV. TOURNIQUET TIME: 300 mmHg x60 minutes. COMPLICATIONS: None. ESTIMATED BLOOD LOSS: Less than 200 cc. SPECIMENS: None. IMPLANTS: [place] tibial nail, right, T2, 12 mm x 330 mm. Five screws, all 5 mm diameter fully threaded, 3 proximal and 2 distal. A +10 mm end-cap proximally. INDICATIONS FOR PROCEDURE: The patient is an 87-year-old woman with chronic kidney disease on hemodialysis, as well as sick sinus syndrome, paroxysmal atrial fibrillation on Eliquis, COPD, asthma, hypertension, hyperlipidemia, anemia of chronic disease, and a history of bilateral hip fractures, who [place] [facility] [place] department on July 13 after sustaining a fall where her right lower extremity gave out and she fell on her right leg. The patient was admitted to the hospitalist service. Workup of right lower leg pain in the emergency department had revealed displaced tibia and fibular shaft fractures. The patient's daughter has relationship with Dr. Mila Rene, having had knee arthroplasty surgery by her. Therefore, Dr. Rene was consulted initially for the patient's tibia and fibula shaft fractures, right. The patient had been placed in a posterior splint by the emergency department. Dr. Rene referred the patient to me. I spoke with the patient and one of her 2 daughters about nonoperative versus operative management. Each would be somewhat challenging secondary to a thin bone and general medical comorbidities. It should be noted that at the patient's baseline she uses a walker and a wheelchair to get about. The patient mostly stays at home, although she goes to hemodialysis 3 times a week. She can use a wheelchair and often does to get through hemodialysis. The patient opted for surgery and her daughter as well. We waited for some time with the patient off Eliquis. I routinely awaited 2 days. We waited slightly longer, 2.5 days since her last dose of Eliquis the night prior to admission, secondary to the patient's chronic kidney disease and high creatinine, per generally accepted recommendations. I discussed with the patient and her daughter benefits, risks, and potential complications of surgery. Risks and potential complications include bleeding, infection, nerve or blood vessel injury, hardware complications, knee pain and stiffness, re-fracture, and blood clot. The patient was optimized for surgery by the hospitalist service. They found her to be in [id number] risk for surgery. DESCRIPTION OF PROCEDURE: Preoperative written consent was obtained from the patient's daughter who is a healthcare proxy and power of research attorney. Operative extremity was marked on the floor, with the patient in a floor bed. The patient was brought back to the operating room and intubated on the stretcher. The patient was brought over to the operating room table, radiolucent , and laid supine. A proximal tourniquet was placed, but not yet inflated. A C-arm was brought in and images were obtained. The right lower extremity showed some exam with the splint off, showed much ecchymosis and blistering about the anterior ankle. The medial ankle where I planned on some incision sites was not affected by ecchymosis or blistering. Due to the bruising about the ankle and the generally poor quality of the skin, I decided not to fix the fibula shaft fracture with the plate and screws, which would require an open incision and certainly would increase the possible risk of infection and wound complications. I had consented the patient for open reduction internal fixation tibia and possible fibula, but I had been leaning towards only fixing the tibia and decided definitively on this after I had done a skin check. Of note, the patient has had an effusion of the right knee, which had not been appreciated on physical exam prior. The patient had stable exam with ligamentous stress testing. The right lower extremity was prepped with chlorhexidine about the foot and then ChloraPrep about the right lower extremity from foot to thigh. Draping. Surgical time-out. Surgical landmarks were marked with a skin pen about the knee. An Esmarch was applied and the tourniquet was elevated to 300 mmHg after a surgical time out had been performed. Incision, skin, anterior, midline longitudinal, centered about the mid-point of the patellar tendon, which was palpable was made from the distal end of the patella to the tibial tuberosity. This was made with the knee in flexion and a radiolucent triangle underneath. I quickly encountered the paratenon. I incised this longitudinally midline anterior as well with a different deep knife. I visualized the medial and the lateral aspect of the patellar tendon and incised the patellar tendon directly midline. I palpated the slope of the tibia anteriorly when it moves from plateau to anterior aspect of the proximal tibia. I placed a pin. I changed the position of the pin several times until I was happy with the position of the pin. It was placed just medial to the lateral tibial spine, pointed directly down the tibial shaft. I liked my angle on the lateral view as well with the pin placed just at the obliquity of the anterior tibia, at the convergence of the anterior border of the proximal tibia and the horizontal surface of the tibial plateau. I placed tissue protector and then placed proximal reamer. I used proximal reamer. We were very careful throughout the case not to violate the patellar tendon. Removed pin and then obtained a ball-tip guidewire. Added a bend to the tip of it. Placed it down the tibia to the fracture site. Reduced the fracture as best we could with manual manipulation, mostly traction. Placed the pin across the fracture site. We placed it to just proximal to the subchondral bone. Measured the pin to be 345 mm and so decided to place a 330 mm long tibial nail. We next placed reamers. Started reaming at 9 mm and went up in 1.5 mm and then 1 mm and then 0.5 mm increments up to 13.5 mm. Not surprisingly, even with 13.5 mm there was only minimal chatter, if any. Decided on the widest diameter nail, 12 mm and 330 mm of length. Placed nail. We re-reduced the tibia at the fracture site multiple times while reaming, constantly using the curve of the ball-tip guidewire to try to improve the placement of the nail. We also made sure we had good reduction when the nail was placed. It should be noted that prior to skin incision, I had looked at the rotation of bilateral lower extremities. The uninjured left leg showed very little external rotation of the foot, perhaps only 5 degrees as compared to the patella with the left knee extended. This compared to a significant external rotation deformity of the operative right knee. While intraoperative, reaming and then placing nail, I tried my best to correct this external rotation deformity, although some of it remained. With nail placed, I next placed 2 proximal screws through the nail using the targeting guide, with small skin incisions and spreading dissection with hemostat. When I then took images at the fracture site and distally, I felt that the nail was a little too close to subchondral bone. I was worried if there was any telescoping at the fracture site postoperatively that the nail might intrude into the ankle joint. Therefore, I decided to remove the proximal screws and back the nail more proximally. I did just this. I next placed new screws proximally through the nail. I placed 3 screws instead of 2 for additional fixation. It should be noted that the purchase of the screws and the bone was not baires, likely because the patient's bone is very thin. We next reduced the fracture as best as possible distally and placed 2 screws distally from medial to lateral using perfect little shell tribe technique and 2 small skin incisions. Final images of tibia, AP and lateral, visualizing proximal screws, distal screws, and fracture site. The nail was slightly medial, distal to the fracture site, but the fracture was well enough reduced. I chose a 10-mm end-cap proximally in case the nail needs to be removed in the future and there is bone growth. I irrigated well all wounds including especially the knee joint to remove any trace of bone shavings. Closed the patellar tendon with multiple stitches, single, simple, as well as [id number], using Vicryl 0 stitch. Closed paratenon with a running stitch using Vicryl 2.0 suture. Only the proximal half of the paratenon was able to be closed. Distally, it was very friable tissue. Closed the subcutaneous tissue of that main incision with simple buried stitches using Vicryl 3.0 suture. Closed the midline incision as well as the small incisions proximally and distally with nylon suture, running stitches proximally and [id number] stitches distally. The tourniquet had been deflated after 1 hour of it being up. There was some loss of superficial most skin anterior about the ankle where there had been blister preoperative. This was not adjacent to any of our skin incisions directly. I cleaned the skin with wet sponge. Placed Telfa over the distal skin incisions and blistering. Used Xeroform over the proximal skin incisions. Sterile Webril. Nonsterile Webril. A posterior splint followed by a medial and lateral splint. The patient was awakened and transferred to the PACU. DISPOSITION: The patient will be nonweightbearing, right lower extremity, and will do physical therapy for out of bed. She will get Ancef 1 g IV q.8 hours x24 hours postoperatively. She will resume her outpatient Eliquis on postoperative day 1 in the morning. Pain control as needed. The patient will follow up with me in clinic approximately 14 days post-operatively for a wound check and removal of stitches. I talked to the patient's family postoperatively about the poor quality of the bone and therefore the likely need for a prolonged course of nonweightbearing. They were amenable to this as the patient at baseline uses a wheelchair much of the time. [id number]/CPS #: [id number] KELLY
[2017-07-16 05:48] LABS: Hematocrit 23 % (35-47); Hemoglobin 7.5 g/dl (12.0-16.0)
[2017-07-16 06:14] LABS: BUN/Creatinine Ratio 10.3 (8-20); Calcium 7.1 mg/dL (8.6-10.3); EGFR African American 11.7 (>60); EGFR Non-African American 9.1 (>60)
[2017-07-16 06:19] LABS: Potassium 5.5 mmol/L (3.5-5.0)
[2017-07-16] MEDS: Morphine INJ* 2 MG/ML 1 ML SYRINGE (TWO MG - NEW SYRINGE VERSION) IV PRN ×3 (07:53→23:55)
[2017-07-16] MEDS: [UNRECOGNIZED DRUG - OTHER] PO SCH ×2 (08:46→22:54)
[2017-07-16] MEDS: Docusate CAP* 100 MG PO SCH ×2 (08:47→22:18)
[2017-07-16] MEDS: oxyCODONE/Acetamin 5/325 MG* TAB PO PRN (08:47)
[2017-07-16] MEDS: Metoprolol Tartrate TAB* 25 MG PO SCH ×2 (08:47→22:53)
[2017-07-16] MEDS: Allopurinol TAB* 100 MG PO SCH (08:47)
[2017-07-16] MEDS: Apixaban* 2.5 MG TAB PO SCH ×2 (08:48→22:18)
--- NOTE | 2017-07-16 10:27 | PN ---
Progress Note - Progress Note Date of Service: 07/16/17 SOAP: Subjective: 87 y/o female s/p ORIF with IMN of Tib fracture by Dr. Sheehan 07/15/2017. The patient states she is feeling very well, pain is controlled. no questions about surgery. VSS, afebrile overnight. Objective: General- Well appearing, NAD, AO MSK- Cast intact, no drainage/ odor noted. + movement of 1-3 R toes, pink, unable to assess cap refill due to thick toenails. no streaking/ erythema for prox, distal cast. thigh non-tender Vital Signs Temp 98.2 F 07/16/17 07:46 Pulse 80 07/16/17 07:46 Resp 16 07/16/17 08:53 BP 105/43 07/16/17 07:46 Pulse Ox 99 07/16/17 09:21 Intake & Output 07/15/17 07/16/17 07/16/17 18:59 06:59 18:59 Intake Total 1060 0 240 Output Total 200 Balance 860 0 240 Intake: IV Fluids 500 NS 500 Oral 560 0 240 Output: Urine 0 Estimated Blood Loss 200 Other: Estimated Void Medium Large # Bowel Movements 0 0 Estimated Stool Amount Large # Voids 1 1 Assessment: POD#1 87 y/o female s/p ORIF with IMN of Tib fracture by Dr. Sheehan 2016. Plan: - Post-op anemia- transfusion today per hospitalists - Appreciate hospitalists input - Follow up with Dr. Sheehan within 10-14 days post-op - DVT prophylaxis- on Eliquis for A fib, starting today - ESRD- dialysis today Active Medications Generic Name Dose Route Start Last Admin Trade Name Freq PRN Reason Stop Dose Admin Acetaminophen 650 mg 07/15/17 12:39 Tylenol Tab* PO Q4H PRN pain and temp Allopurinol 100 mg 07/13/17 09:00 07/16/17 08:47 Zyloprim Tab* PO 100 mg QAM MARGARET Administration Amiodarone HCl 200 mg 07/13/17 21:00 07/15/17 21:09 Cordarone Tab* PO 200 mg BEDTIME MARGARET Administration Apixaban 2.5 mg 07/16/17 09:00 07/16/17 08:48 Eliquis PO 2.5 mg BID MARGARET Administration Cinacalcet 30 mg 07/13/17 21:00 07/15/17 21:10 Sensipar Tab* PO 30 mg BEDTIME MARGARET Administration Diphenhydramine HCl 25 mg 07/14/17 14:27 Benadryl Po* PO BEDTIME PRN INSOMNIA Docusate Sodium 100 mg 07/15/17 21:00 07/16/17 08:47 Colace Cap* PO 100 mg BID MARGARET Administration Donepezil HCl 5 mg 07/13/17 21:00 07/15/17 21:09 Aricept Tab* PO 5 mg BEDTIME MARGARET Administration Magnesium Hydroxide 30 ml 07/15/17 12:39 Milk Of Magnesia Liq* PO Q6H PRN constipation Metoprolol Tartrate 25 mg 07/13/17 09:00 07/16/17 08:47 Lopressor Tab* PO 25 mg BID MARGARET Administration Morphine Sulfate 2 mg 07/13/17 09:58 07/16/17 07:53 Morphine Inj (Syringe)* IV 2 mg Q4H PRN Administration PAIN Pto:Eye Vitamin And 2 admin 07/14/17 21:00 07/16/17 08:46 Mineral (Savision) PO 2 admin BID MARGARET Administration Ondansetron HCl 4 mg 07/15/17 12:39 Zofran Inj* IV Q6H PRN nausea Oxycodone/Acetaminophen 1 tab 07/15/17 12:39 Percocet 5/325 Tab* PO Q3H PRN PAIN - MODERATE Oxycodone/Acetaminophen 2 tab 07/15/17 12:39 07/16/17 08:47 Percocet 5/325 Tab* PO 2 tab Q3H PRN Administration Pain - Moderate to severe Sertraline HCl 50 mg 07/15/17 21:00 07/15/17 21:10 Zoloft* PO 50 mg BEDTIME MARGARET Administration
--- NOTE | 2017-07-16 15:08 | PN ---
Subjective Date of Service: 07/16/17 Interval History: Patient denies any new complaints overnight. Patient says pain in right leg controlled well with medication. Patient denies any F/C, N/V, CP, Palpitations, SOB, abdominal pain, diarrhea, constipation, dizziness, lightheadedness, or other pain. Patient states she had done well with PT this morning, but the not from PT states that she did not do well with avoiding weight bearing on her leg and recommended a ioana lift. Patient states understanding of this, but states she will not go to [facility] despite daughter stating that she feels physically unable to adequately assist her at home. Patient is moderately anemic at 7.5 and moderately hyperkalemic at 5.5. Patient is scheduled for dialysis later today and she is ordered to receive a unit of blood during her treatment. Family History: Unchanged from Admission Social History: Unchanged from Admission Past Medical History: Unchanged from Admission Objective Active Medications: Acetaminophen (Tylenol Tab*) 650 mg PO Q4H PRN PRN Reason: pain and temp Allopurinol (Zyloprim Tab*) 100 mg PO QAM [facility] Last Admin: 07/16/17 08:47 Dose: 100 mg Amiodarone HCl (Cordarone Tab*) 200 mg PO BEDTIME [facility] Last Admin: 07/15/17 21:09 Dose: 200 mg Apixaban (Eliquis) 2.5 mg PO BID [facility] Last Admin: 07/16/17 08:48 Dose: 2.5 mg Cinacalcet (Sensipar Tab*) 30 mg PO BEDTIME [facility] Last Admin: 07/15/17 21:10 Dose: 30 mg Diphenhydramine HCl (Benadryl Po*) 25 mg PO BEDTIME PRN PRN Reason: INSOMNIA Docusate Sodium (Colace Cap*) 100 mg PO BID [facility] Last Admin: 07/16/17 08:47 Dose: 100 mg Donepezil HCl (Aricept Tab*) 5 mg PO BEDTIME [facility] Last Admin: 07/15/17 21:09 Dose: 5 mg Magnesium Hydroxide (Milk Of Magnesia Liq*) 30 ml PO Q6H PRN PRN Reason: constipation Metoprolol Tartrate (Lopressor Tab*) 25 mg PO BID [facility] Last Admin: 07/16/17 08:47 Dose: 25 mg Morphine Sulfate (Morphine Inj (Syringe)*) 2 mg IV Q4H PRN PRN Reason: PAIN Last Admin: 07/16/17 07:53 Dose: 2 mg Pto:Eye Vitamin And (Mineral (Savision)) 2 admin PO BID [facility] Last Admin: 07/16/17 08:46 Dose: 2 admin Ondansetron HCl (Zofran Inj*) 4 mg IV Q6H PRN PRN Reason: nausea Oxycodone/Acetaminophen (Percocet 5/325 Tab*) 1 tab PO Q3H PRN PRN Reason: PAIN - MODERATE Oxycodone/Acetaminophen (Percocet 5/325 Tab*) 2 tab PO Q3H PRN PRN Reason: Pain - Moderate to severe Last Admin: 07/16/17 08:47 Dose: 2 tab Sertraline HCl (Zoloft*) 50 mg PO BEDTIME [facility] Last Admin: 07/15/17 21:10 Dose: 50 mg Vital Signs 07/15/17 07/15/17 07/15/17 15:10 15:34 15:39 Temperature 97.4 F 97.4 F Pulse Rate 74 74 Respiratory 12 20 20 Rate Blood Pressure 117/50 117/50 (mmHg) O2 Sat by Pulse 100 100 Oximetry 07/15/17 07/15/17 07/15/17 15:42 16:00 16:42 Temperature Pulse Rate Respiratory 16 16 Rate Blood Pressure (mmHg) O2 Sat by Pulse 100 Oximetry 07/15/17 07/15/17 07/15/17 17:39 18:10 21:09 Temperature 97.4 F 97.4 F Pulse Rate 70 70 Respiratory 20 20 16 Rate Blood Pressure 128/46 128/46 (mmHg) O2 Sat by Pulse 100 100 Oximetry 07/15/17 07/15/17 07/15/17 21:28 21:29 23:09 Temperature Pulse Rate Respiratory 18 18 18 Rate Blood Pressure (mmHg) O2 Sat by Pulse Oximetry 07/15/17 07/15/17 07/16/17 23:15 23:56 00:00 Temperature 98.8 F Pulse Rate 77 Respiratory 16 18 Rate Blood Pressure 135/45 (mmHg) O2 Sat by Pulse 100 100 Oximetry 07/16/17 07/16/17 07/16/17 00:56 03:36 07:46 Temperature 98.0 F 98.2 F Pulse Rate 73 80 Respiratory 18 16 17 Rate Blood Pressure 144/57 105/43 (mmHg) O2 Sat by Pulse 100 100 Oximetry 07/16/17 07/16/17 07/16/17 07:53 08:00 08:47 Temperature Pulse Rate Respiratory 17 16 16 Rate Blood Pressure (mmHg) O2 Sat by Pulse 99 Oximetry 07/16/17 07/16/17 07/16/17 08:53 09:21 10:47 Temperature Pulse Rate Respiratory 16 16 Rate Blood Pressure (mmHg) O2 Sat by Pulse 99 Oximetry 07/16/17 11:24 Temperature 97.9 F Pulse Rate 77 Respiratory 16 Rate Blood Pressure 105/40 (mmHg) O2 Sat by Pulse 100 Oximetry Oxygen Devices in Use Now: Nasal Cannula Appearance: Patient is an 87yo female who appears stated age sitting in the bed in NAD. Eyes: No Scleral Icterus, PERRLA Ears/Nose/Mouth/Throat: NL Teeth, Lips, Gums, Clear Oropharnyx, Mucous Membranes Moist Neck: NL Appearance and Movements; NL JVP, Trachea Midline Respiratory: Symmetrical Chest Expansion and Respiratory Effort, - - Slight crackles in bilateral lower lobes. Cardiovascular: NL Sounds; No Murmurs; No JVD, RRR, No Edema Abdominal: NL Sounds; No Tenderness; No Distention, No Hepatosplenomegaly Lymphatic: No Cervical Adenopathy Skin: No Rash or Ulcers, No Nodules or Sclerosis, - - Surgical site covered by bulky dressing. Clean dry and intact. Capillary refill, sensation, and movement intact in toes. Neurological: Alert and Oriented x 3 Result Diagrams: 07/16/17 05:09 07/16/17 05:09 Additional Lab and Data: 07/13/17 07/14/17 07/14/17 05:25 05:38 05:38 WBC 10.7 RBC 3.00 L Hgb 9.2 L Hct 28 L MCV 94 MCH 31 MCHC 33 RDW 18 H Plt Count 169 MPV 8 Neut % (Auto) 88.1 H Lymph % (Auto) 6.4 L [place] % (Auto) 5.1 Eos % (Auto) 0 Baso % (Auto) 0.4 Absolute Neuts (auto) 9.4 H Absolute Lymphs (auto) 0.7 L Absolute Monos (auto) 0.6 Absolute Eos (auto) 0 Absolute Basos (auto) 0 Absolute Nucleated RBC 0.02 Nucleated RBC % 0.1 INR (Anticoag Therapy) Sodium 135 Potassium 4.7 Chloride 99 L Carbon Dioxide 28 Anion Gap 8 BUN 57 H Creatinine 5.82 H Est GFR ( Amer) 8.9 Est GFR (Non-Af Amer) 6.9 BUN/Creatinine Ratio 9.8 Glucose 85 Calcium 8.2 L Phosphorus 3.1 Magnesium 2.2 Total Bilirubin 0.40 Direct Bilirubin 0.10 Indirect Bilirubin 0.3 AST 33 ALT 61 H Alkaline Phosphatase 85 Total Protein 5.5 L Albumin 2.7 L Globulin 2.8 Albumin/Globulin Ratio 1.0 Blood Type Antibody Screen Crossmatch 07/15/17 07/15/17 07/15/17 06:10 06:10 06:10 WBC 8.4 RBC 2.84 L Hgb 8.6 L Hct 27 L MCV 95 MCH 31 MCHC 32 RDW 19 H Plt Count 165 MPV 8 Neut % (Auto) 90.1 H Lymph % (Auto) 6.0 L [place] % (Auto) 3.7 Eos % (Auto) 0 Baso % (Auto) 0.2 Absolute Neuts (auto) 7.5 Absolute Lymphs (auto) 0.5 L Absolute Monos (auto) 0.3 Absolute Eos (auto) 0 Absolute Basos (auto) 0 Absolute Nucleated RBC 0.03 Nucleated RBC % 0.4 INR (Anticoag Therapy) 0.96 Sodium 132 L Potassium 4.6 Chloride 98 L Carbon Dioxide 28 Anion Gap 6 BUN 36 H Creatinine 3.72 H Est GFR ( Amer) 14.8 Est GFR (Non-Af Amer) 11.5 BUN/Creatinine Ratio 9.7 Glucose 127 H Calcium 7.4 L Phosphorus Magnesium Total Bilirubin Direct Bilirubin Indirect Bilirubin AST ALT Alkaline Phosphatase Total Protein Albumin Globulin Albumin/Globulin Ratio Blood Type Antibody Screen Crossmatch 07/16/17 07/16/17 07/16/17 05:09 05:09 05:09 WBC RBC Hgb 7.5 L Hct 23 L MCV MCH MCHC RDW Plt Count MPV Neut % (Auto) Lymph % (Auto) [place] % (Auto) Eos % (Auto) Baso % (Auto) Absolute Neuts (auto) Absolute Lymphs (auto) Absolute Monos (auto) Absolute Eos (auto) Absolute Basos (auto) Absolute Nucleated RBC Nucleated RBC % INR (Anticoag Therapy) Sodium 129 L Potassium 5.5 H Chloride 97 L Carbon Dioxide 23 Anion Gap 9 BUN 47 H Creatinine 4.58 H Est GFR ( Amer) 11.7 Est GFR (Non-Af Amer) 9.1 BUN/Creatinine Ratio 10.3 Glucose 109 H Calcium 7.1 L Phosphorus Magnesium Total Bilirubin Direct Bilirubin Indirect Bilirubin AST ALT Alkaline Phosphatase Total Protein Albumin Globulin Albumin/Globulin Ratio Blood Type B Positive Antibody Screen Negative Crossmatch See Detail Microbiology and Other Data: Microbiology 07/13/17 11:15 Nasal Screen MRSA (PCR)(PRUDENCIO) - Final Nasal Mrsa Positive Assess/Plan/Problems-Billing Patient is an 87 y/o F w/ hx of atrial fibrillation (on eliquis), ESRD (on HD), sick sinus syndrome s/p PPM who presented to the ER 07/13/17 after a mechanical fall found to have a R spital tibia/fibula fracture. Patient is POD #1 and is doing well, will be going to dialysis later today. - Patient Problems (1) ESRD (end stage renal disease) on dialysis Current Visit: Yes Status: Acute Code(s): N18.6 - END STAGE RENAL DISEASE; Z99.2 - DEPENDENCE ON RENAL DIALYSIS SNOMED Code(s): 183379758 Comment: Hyperkalemic at 5.5, EKG shows slightly peaked T-waves in V2 only. Asymptomatic , will correct at dialysis. (2) Fracture of tibia with fibula, right, closed Current Visit: Yes Status: Acute Code(s): S82.201A - UNSP FRACTURE OF SHAFT OF RIGHT TIBIA, INIT FOR CLOS FX; S82.401A - UNSP FRACTURE OF SHAFT OF RIGHT FIBULA, INIT FOR CLOS FX SNOMED Code(s): 848286228 Comment: POD#1 of ORIF. Pain control with percocet/morphine. Hgb 7.5, slightly below baseline, will transfuse 1 unit at dialysis. Check H/H 1 hour after transfusion at dialysis and again in morning. Elequis restarted (3) DVT prophylaxis Current Visit: No Status: Acute Code(s): DAW0046 - SNOMED Code(s): 576873637 Comment: Eliquis to restart tonight. (4) Fall at home Current Visit: No Status: Acute Onset Date: 10/26/14 Code(s): W19.XXXA - UNSPECIFIED FALL, INITIAL ENCOUNTER; Y92.099 - UNSP PLACE IN [facility] NON- INSTITUTIONAL RESIDENCE PLACE SNOMED Code(s): 90164702 Comment: Patient is unwilling to go to STR while non-weight bearing. Daughter does not think this is safe. Not a PMRU candidate, will reassess in morning and consult psych for competency evaluation if necessary. (5) Hypertension Current Visit: No Status: Acute Code(s): I10 - ESSENTIAL (PRIMARY) HYPERTENSION SNOMED Code(s): 51160983 Comment: BP controlled; Continue Lopressor (6) Postoperative anemia Current Visit: No Status: Acute Code(s): D64.9 - ANEMIA, UNSPECIFIED SNOMED Code(s): 413844324 Comment: Acute anemia on anemia of chronic disease. Will tranfuse 1 unit and continue to monitor. (7) Atrial fibrillation Current Visit: No Status: Chronic Code(s): I48.91 - UNSPECIFIED ATRIAL FIBRILLATION SNOMED Code(s): 44681945 Comment: Currently in sinus rhythm. Continue Amiodarone and Lopressor. Resume Eliquis (8) COPD (chronic obstructive pulmonary disease) Current Visit: No Status: Chronic Code(s): J44.9 - CHRONIC OBSTRUCTIVE PULMONARY DISEASE, UNSPECIFIED SNOMED Code(s): 03868730 Comment: On 2L O2 which is prescribed at home PRN. Not in exacerbation but completed treatment for acute bronchitis with prednisone 07/13. (9) Dialysis patient Current Visit: No Status: Chronic Code(s): Z99.2 - DEPENDENCE ON RENAL DIALYSIS SNOMED Code(s): 972238483 Comment: Continue per routine MWF while in the hospital and resume when D/C'd (10) Full code status Current Visit: No Status: Acute Code(s): Z78.9 - OTHER SPECIFIED HEALTH STATUS SNOMED Code(s): 869322930 Status and Disposition: Inpatient for right tib/fib fracture. May need STR as she is NWB. Refuses to go to STR. Will talk to patient again in AM and attempt to find acceptable solution.
[2017-07-16 19:48] LABS: Hematocrit 26 % (35-47); Hemoglobin 8.5 g/dl (12.0-16.0)
[2017-07-16] MEDS: Amiodarone TAB* 200 MG PO SCH (22:17)
[2017-07-16] MEDS: Donepezil TAB* 5 MG PO SCH (22:18)
[2017-07-16] MEDS: Sertraline* 50 MG TAB PO SCH (22:18)
[2017-07-16] MEDS: Cinacalcet TAB* 30 MG PO SCH (22:22)
[2017-07-17] MEDS: oxyCODONE/Acetamin 5/325 MG* TAB PO PRN ×4 (01:35→17:29)
[2017-07-17] MEDS: Morphine INJ* 2 MG/ML 1 ML SYRINGE (TWO MG - NEW SYRINGE VERSION) IV PRN (03:55)
[2017-07-17] MEDS: Metoprolol Tartrate TAB* 25 MG PO SCH ×2 (08:15→21:37)
[2017-07-17] MEDS: Docusate CAP* 100 MG PO SCH ×2 (08:15→21:38)
[2017-07-17] MEDS: Apixaban* 2.5 MG TAB PO SCH ×2 (08:15→21:38)
[2017-07-17] MEDS: Allopurinol TAB* 100 MG PO SCH (08:15)
--- NOTE | 2017-07-17 08:52 | PN ---
Progress Note - Progress Note Date of Service: 07/17/17 SOAP: Subjective: resting comfortably with no complaints, OOB to chair Objective: Vital Signs Temp Pulse Resp BP Pulse Ox 97.9 F 70 22 105/39 89 07/17/17 03:41 07/17/17 03:41 07/17/17 08:15 07/17/17 03:41 07/17/17 04:06 Laboratory Last Values WBC 8.4 10^3/ul (3.5-10.8) 07/15/17 06:10 RBC 2.84 10^6/ul (4.0-5.4) L 07/15/17 06:10 Hgb 8.5 g/dl (12.0-16.0) L 07/16/17 19:40 Hct 26 % (35-47) L 07/16/17 19:40 MCV 95 fL (80-97) 07/15/17 06:10 MCH 31 pg (27-31) 07/15/17 06:10 MCHC 32 g/dl (31-36) 07/15/17 06:10 RDW 19 % (10.5-15) H 07/15/17 06:10 Plt Count 165 10^3/ul (150-450) 07/15/17 06:10 MPV 8 um3 (7.4-10.4) 07/15/17 06:10 Neut % (Auto) 90.1 % (38-83) H 07/15/17 06:10 Lymph % (Auto) 6.0 % (25-47) L 07/15/17 06:10 [place] % (Auto) 3.7 % (1-9) 07/15/17 06:10 Eos % (Auto) 0 % (0-6) 07/15/17 06:10 Baso % (Auto) 0.2 % (0-2) 07/15/17 06:10 Absolute Neuts (auto) 7.5 10^3/ul (1.5-7.7) 07/15/17 06:10 Absolute Lymphs (auto) 0.5 10^3/ul (1.0-4.8) L 07/15/17 06:10 Absolute Monos (auto) 0.3 10^3/ul (0-0.8) 07/15/17 06:10 Absolute Eos (auto) 0 10^3/ul (0-0.6) 07/15/17 06:10 Absolute Basos (auto) 0 10^3/ul (0-0.2) 07/15/17 06:10 Absolute Nucleated RBC 0.03 10^3/ul 07/15/17 06:10 Nucleated RBC % 0.4 07/15/17 06:10 INR (Anticoag Therapy) 0.96 (0.89-1.11) 07/15/17 06:10 Sodium 129 mmol/L (133-145) L 07/16/17 05:09 Potassium 5.5 mmol/L (3.5-5.0) H 07/16/17 05:09 Chloride 97 mmol/L (101-111) L 07/16/17 05:09 Carbon Dioxide 23 mmol/L (22-32) 07/16/17 05:09 Anion Gap 9 mmol/L (2-11) 07/16/17 05:09 BUN 47 mg/dL (6-24) H 07/16/17 05:09 Creatinine 4.58 mg/dL (0.51-0.95) H 07/16/17 05:09 Est GFR ( Amer) 11.7 (>60) 07/16/17 05:09 Est GFR (Non-Af Amer) 9.1 (>60) 07/16/17 05:09 BUN/Creatinine Ratio 10.3 (8-20) 07/16/17 05:09 Glucose 109 mg/dL (70-100) H 07/16/17 05:09 Calcium 7.1 mg/dL (8.6-10.3) L 07/16/17 05:09 Phosphorus 3.1 mg/dL (2.5-5.0) 07/13/17 05:25 Magnesium 2.2 mg/dL (1.9-2.7) 07/13/17 05:25 Total Bilirubin 0.40 mg/dL (0.2-1.0) 07/14/17 05:38 Direct Bilirubin 0.10 mg/dL (0.03-0.18) 07/14/17 05:38 Indirect Bilirubin 0.3 mg/dL (0.3-1.0) 07/14/17 05:38 AST 33 U/L (13-39) 07/14/17 05:38 ALT 61 U/L (7-52) H 07/14/17 05:38 Alkaline Phosphatase 85 U/L (34-104) 07/14/17 05:38 Troponin I 0.03 ng/mL (<0.04) 07/13/17 05:25 Total Protein 5.5 g/dL (6.4-8.9) L 07/14/17 05:38 Albumin 2.7 g/dL (3.2-5.2) L 07/14/17 05:38 Globulin 2.8 g/dL (2-4) 07/14/17 05:38 Albumin/Globulin Ratio 1.0 (1-3) 07/14/17 05:38 Urine Color Yellow 07/13/17 06:30 Urine Appearance Clear 07/13/17 06:30 Urine pH 9 (5-9) 07/13/17 06:30 Ur Specific [place] 1.000 (1.010-1.030) L 07/13/17 06:30 Urine Protein 2+(100 mg/dl) (Negative) H 07/13/17 06:30 Urine Ketones Negative (Negative) 07/13/17 06:30 Urine Blood Negative (Negative) 07/13/17 06:30 Urine Nitrate Negative (Negative) 07/13/17 06:30 Urine Bilirubin Negative (Negative) 07/13/17 06:30 Urine Urobilinogen Negative (Negative) 07/13/17 06:30 Ur Leukocyte Esterase Negative (Negative) 07/13/17 06:30 Urine Glucose Negative (Negative) 07/13/17 06:30 Urine Ascorbic Acid * (Negative) H 07/13/17 06:30 Blood Type B Positive 07/16/17 05:09 Antibody Screen Negative 07/16/17 05:09 Crossmatch See Detail 07/16/17 05:09 incision: c/d; splint intact PE: moving toes with intact sensation Assessment: 1) Hospitalist co-managing 2) PT/OT- NWB RLE 3) Continue Eliquis for DVT prophylaxis 4) likely need rehab referral Plan: []
[2017-07-17 09:15] LABS: Hematocrit 28 % (35-47); Hemoglobin 9.3 g/dl (12.0-16.0)
[2017-07-17] MEDS: [UNRECOGNIZED DRUG - OTHER] PO SCH ×2 (09:22→21:39)
[2017-07-17 09:26] LABS: ALT < 3 U/L (7-52); AST 26 U/L (13-39); Albumin 2.4 g/dL (3.2-5.2); Alkaline Phosphatase 74 U/L (34-104); Anion Gap 12 mmol/L (2-11); BUN/Creatinine Ratio 9.9 (8-20); Blood Urea Nitrogen 38 mg/dL (6-24); CO2 Carbon Dioxide 21 mmol/L (22-32); Calcium 6.8 mg/dL (8.6-10.3); Chloride 97 mmol/L (101-111); EGFR African American 14.3 (>60); EGFR Non-African American 11.1 (>60); Globulin 2.9 g/dL (2-4); Glucose 58 mg/dL (70-100); Potassium 4.2 mmol/L (3.5-5.0); Sodium 130 mmol/L (133-145); Total Protein 5.3 g/dL (6.4-8.9)
[2017-07-17] MEDS ORDERED: Albuterol/Ipratropium NEB.SOL* Albuterol 2.5 MG/Ipratropium 0.5 MG 3 ML INH PRN (12:55)
--- NOTE | 2017-07-17 16:55 | PN ---
Subjective Date of Service: 07/17/17 Interval History: Patient has no new complaints overnight. Patient complains of fatigue which has been going on for months and is not better or worse. Patient states that she is willing to go to rehab as long as it is not at [place]. Patient offered a bed at [facility] and will be going tomorrow after dialysis. Patient has baseline SOB and has needed O2 intermittently through the day due to hypoxia which is similar to at home. Family History: Unchanged from Admission Social History: Unchanged from Admission Past Medical History: Unchanged from Admission Objective Active Medications: Acetaminophen (Tylenol Tab*) 650 mg PO Q4H PRN PRN Reason: pain and temp Albuterol/Ipratropium (Duoneb (Albuterol 2.5 Mg/Ipratropium 0.5 Mg)) 1 neb INH Q4H PRN PRN Reason: SOB/WHEEZING Last Admin: 07/17/17 13:54 Dose: 1 neb Allopurinol (Zyloprim Tab*) 100 mg PO QAM [facility] Last Admin: 07/17/17 08:15 Dose: 100 mg Amiodarone HCl (Cordarone Tab*) 200 mg PO BEDTIME [facility] Last Admin: 07/16/17 22:17 Dose: 200 mg Apixaban (Eliquis) 2.5 mg PO BID [facility] Last Admin: 07/17/17 08:15 Dose: 2.5 mg Cinacalcet (Sensipar Tab*) 30 mg PO BEDTIME [facility] Last Admin: 07/16/17 22:22 Dose: 30 mg Diphenhydramine HCl (Benadryl Po*) 25 mg PO BEDTIME PRN PRN Reason: INSOMNIA Docusate Sodium (Colace Cap*) 100 mg PO BID [facility] Last Admin: 07/17/17 08:15 Dose: 100 mg Donepezil HCl (Aricept Tab*) 5 mg PO BEDTIME [facility] Last Admin: 07/16/17 22:18 Dose: 5 mg Magnesium Hydroxide (Milk Of Magnesia Liq*) 30 ml PO Q6H PRN PRN Reason: constipation Metoprolol Tartrate (Lopressor Tab*) 25 mg PO BID [facility] Last Admin: 07/17/17 08:15 Dose: 25 mg Morphine Sulfate (Morphine Inj (Syringe)*) 2 mg IV Q4H PRN PRN Reason: PAIN Last Admin: 07/17/17 03:55 Dose: 2 mg Pto:Eye Vitamin And (Mineral (Savision)) 2 admin PO BID [facility] Last Admin: 07/17/17 09:22 Dose: 2 admin Ondansetron HCl (Zofran Inj*) 4 mg IV Q6H PRN PRN Reason: nausea Oxycodone/Acetaminophen (Percocet 5/325 Tab*) 1 tab PO Q3H PRN PRN Reason: PAIN - MODERATE Oxycodone/Acetaminophen (Percocet 5/325 Tab*) 2 tab PO Q3H PRN PRN Reason: Pain - Moderate to severe Last Admin: 07/17/17 13:53 Dose: 2 tab Sertraline HCl (Zoloft*) 50 mg PO BEDTIME [facility] Last Admin: 07/16/17 22:18 Dose: 50 mg Vital Signs 07/16/17 07/16/17 07/16/17 16:52 17:53 19:50 Temperature Pulse Rate 74 Respiratory 17 22 Rate Blood Pressure 120/46 (mmHg) O2 Sat by Pulse 96 98 Oximetry 07/16/17 07/16/17 07/16/17 19:53 22:22 22:56 Temperature 97.6 F Pulse Rate 76 Respiratory 18 18 18 Rate Blood Pressure 126/93 (mmHg) O2 Sat by Pulse 97 Oximetry 07/16/17 07/17/17 07/17/17 23:55 00:55 01:35 Temperature Pulse Rate Respiratory 18 18 20 Rate Blood Pressure (mmHg) O2 Sat by Pulse Oximetry 07/17/17 07/17/17 07/17/17 03:35 03:41 03:55 Temperature 97.9 F Pulse Rate 70 Respiratory 20 16 20 Rate Blood Pressure 105/39 (mmHg) O2 Sat by Pulse 89 Oximetry 07/17/17 07/17/17 07/17/17 04:06 04:55 07:52 Temperature 98.2 F Pulse Rate 71 Respiratory 16 16 Rate Blood Pressure 107/36 (mmHg) O2 Sat by Pulse 89 99 Oximetry 07/17/17 07/17/17 07/17/17 08:00 08:15 08:57 Temperature Pulse Rate Respiratory 18 22 Rate Blood Pressure (mmHg) O2 Sat by Pulse 95 95 Oximetry 07/17/17 07/17/17 07/17/17 10:15 11:50 13:53 Temperature 97.2 F Pulse Rate 70 Respiratory 20 16 18 Rate Blood Pressure 96/37 (mmHg) O2 Sat by Pulse 97 Oximetry 07/17/17 07/17/17 07/17/17 15:37 15:53 16:13 Temperature 97.5 F Pulse Rate 71 Respiratory 18 16 Rate Blood Pressure 98/34 (mmHg) O2 Sat by Pulse 100 96 Oximetry Oxygen Devices in Use Now: None Appearance: Patient is an 87yo female who appears stated age and is sitting in the bed in NAD. Eyes: No Scleral Icterus, PERRLA Ears/Nose/Mouth/Throat: Clear Oropharnyx, Mucous Membranes Moist Neck: NL Appearance and Movements; NL JVP, Trachea Midline Respiratory: Symmetrical Chest Expansion and Respiratory Effort, - - Expiratory wheezes in all lung phillips. Cardiovascular: RRR, No Edema, - - Grade 4/6 murmur heard beast at RUSB without S2 heard, consistent with previous exam. Abdominal: NL Sounds; No Tenderness; No Distention, No Hepatosplenomegaly Lymphatic: No Cervical Adenopathy Extremities: No Edema, - - Right foot wrapped in bulky dressing, normal sensation, capillary refill, and movement in exposed toes. Skin: No Rash or Ulcers, No Nodules or Sclerosis Neurological: Alert and Oriented x 3 Result Diagrams: 07/17/17 08:47 07/17/17 08:47 Additional Lab and Data: 07/13/17 07/14/17 07/14/17 05:25 05:38 05:38 WBC 10.7 RBC 3.00 L Hgb 9.2 L Hct 28 L MCV 94 MCH 31 MCHC 33 RDW 18 H Plt Count 169 MPV 8 Neut % (Auto) 88.1 H Lymph % (Auto) 6.4 L [place] % (Auto) 5.1 Eos % (Auto) 0 Baso % (Auto) 0.4 Absolute Neuts (auto) 9.4 H Absolute Lymphs (auto) 0.7 L Absolute Monos (auto) 0.6 Absolute Eos (auto) 0 Absolute Basos (auto) 0 Absolute Nucleated RBC 0.02 Nucleated RBC % 0.1 INR (Anticoag Therapy) Sodium 135 Potassium 4.7 Chloride 99 L Carbon Dioxide 28 Anion Gap 8 BUN 57 H Creatinine 5.82 H Est GFR ( Amer) 8.9 Est GFR (Non-Af Amer) 6.9 BUN/Creatinine Ratio 9.8 Glucose 85 Calcium 8.2 L Phosphorus 3.1 Magnesium 2.2 Total Bilirubin 0.40 Direct Bilirubin 0.10 Indirect Bilirubin 0.3 AST 33 ALT 61 H Alkaline Phosphatase 85 Total Protein 5.5 L Albumin 2.7 L Globulin 2.8 Albumin/Globulin Ratio 1.0 Blood Type Antibody Screen Crossmatch 07/15/17 07/15/17 07/15/17 06:10 06:10 06:10 WBC 8.4 RBC 2.84 L Hgb 8.6 L Hct 27 L MCV 95 MCH 31 MCHC 32 RDW 19 H Plt Count 165 MPV 8 Neut % (Auto) 90.1 H Lymph % (Auto) 6.0 L [place] % (Auto) 3.7 Eos % (Auto) 0 Baso % (Auto) 0.2 Absolute Neuts (auto) 7.5 Absolute Lymphs (auto) 0.5 L Absolute Monos (auto) 0.3 Absolute Eos (auto) 0 Absolute Basos (auto) 0 Absolute Nucleated RBC 0.03 Nucleated RBC % 0.4 INR (Anticoag Therapy) 0.96 Sodium 132 L Potassium 4.6 Chloride 98 L Carbon Dioxide 28 Anion Gap 6 BUN 36 H Creatinine 3.72 H Est GFR ( Amer) 14.8 Est GFR (Non-Af Amer) 11.5 BUN/Creatinine Ratio 9.7 Glucose 127 H Calcium 7.4 L Phosphorus Magnesium Total Bilirubin Direct Bilirubin Indirect Bilirubin AST ALT Alkaline Phosphatase Total Protein Albumin Globulin Albumin/Globulin Ratio Blood Type Antibody Screen Crossmatch 07/16/17 07/16/17 07/16/17 05:09 05:09 05:09 WBC RBC Hgb 7.5 L Hct 23 L MCV MCH MCHC RDW Plt Count MPV Neut % (Auto) Lymph % (Auto) [place] % (Auto) Eos % (Auto) Baso % (Auto) Absolute Neuts (auto) Absolute Lymphs (auto) Absolute Monos (auto) Absolute Eos (auto) Absolute Basos (auto) Absolute Nucleated RBC Nucleated RBC % INR (Anticoag Therapy) Sodium 129 L Potassium 5.5 H Chloride 97 L Carbon Dioxide 23 Anion Gap 9 BUN 47 H Creatinine 4.58 H Est GFR ( Amer) 11.7 Est GFR (Non-Af Amer) 9.1 BUN/Creatinine Ratio 10.3 Glucose 109 H Calcium 7.1 L Phosphorus Magnesium Total Bilirubin Direct Bilirubin Indirect Bilirubin AST ALT Alkaline Phosphatase Total Protein Albumin Globulin Albumin/Globulin Ratio Blood Type B Positive Antibody Screen Negative Crossmatch See Detail Microbiology and Other Data: Microbiology 07/13/17 11:15 Nasal Screen MRSA (PCR)(PRUDENCIO) - Final Nasal Mrsa Positive Assess/Plan/Problems-Billing Patient is an 87 y/o F w/ hx of atrial fibrillation (on eliquis), ESRD (on HD), sick sinus syndrome s/p PPM who presented to the ER 07/13/17 after a mechanical fall found to have a R spital tibia/fibula fracture. Patient is POD #2 and is doing well, will be going to dialysis tomorrow and then to STR. - Patient Problems (1) ESRD (end stage renal disease) on dialysis Current Visit: Yes Status: Acute Code(s): N18.6 - END STAGE RENAL DISEASE; Z99.2 - DEPENDENCE ON RENAL DIALYSIS SNOMED Code(s): 156680676 Comment: Hyperkalemic at 5.5, EKG shows slightly peaked T-waves in V2 only. Asymptomatic , will correct at dialysis. (2) Fracture of tibia with fibula, right, closed Current Visit: Yes Status: Acute Code(s): S82.201A - UNSP FRACTURE OF SHAFT OF RIGHT TIBIA, INIT FOR CLOS FX; S82.401A - UNSP FRACTURE OF SHAFT OF RIGHT FIBULA, INIT FOR CLOS FX SNOMED Code(s): 412639552 Comment: POD#2 of ORIF. Pain control with percocet/morphine. Hgb 9.3. Elequis restarted. Appreciate surgery input. (3) DVT prophylaxis Current Visit: No Status: Acute Code(s): REV9492 - SNOMED Code(s): 493744850 Comment: Hermilo (4) Fall at home Current Visit: No Status: Acute Onset Date: 10/26/14 Code(s): W19.XXXA - UNSPECIFIED FALL, INITIAL ENCOUNTER; Y92.099 - UNSP PLACE IN [facility] NON- INSTITUTIONAL RESIDENCE PLACE SNOMED Code(s): 57909321 Comment: Patient willing to go to [place] for STR. Will hopefully regain strength and be able to return home with the help of her daughter. (5) Hypertension Current Visit: No Status: Acute Code(s): I10 - ESSENTIAL (PRIMARY) HYPERTENSION SNOMED Code(s): 60800942 Comment: BP controlled; Continue Lopressor (6) Postoperative anemia Current Visit: No Status: Acute Code(s): D64.9 - ANEMIA, UNSPECIFIED SNOMED Code(s): 538049851 Comment: Acute anemia on anemia of chronic disease. Hgb 9.3, will continue to monitor. (7) Atrial fibrillation Current Visit: No Status: Chronic Code(s): I48.91 - UNSPECIFIED ATRIAL FIBRILLATION SNOMED Code(s): 09512517 Comment: Currently in sinus rhythm. Continue Amiodarone, Lopressor, and Eliquis (8) COPD (chronic obstructive pulmonary disease) Current Visit: No Status: Chronic Code(s): J44.9 - CHRONIC OBSTRUCTIVE PULMONARY DISEASE, UNSPECIFIED SNOMED Code(s): 49970300 Comment: On 2L O2 intermittently which is prescribed at home PRN. Not in exacerbation but completed treatment for acute bronchitis with prednisone 07/13. Wheezing on exam, Duoneb ordered Q4H PRN. Patient has an inhaler at home. (9) Dialysis patient Current Visit: No Status: Chronic Code(s): Z99.2 - DEPENDENCE ON RENAL DIALYSIS SNOMED Code(s): 148022152 Comment: Continue per routine MWF while in the hospital and resume when D/C'd at [place]. (10) Full code status Current Visit: No Status: Acute Code(s): Z78.9 - OTHER SPECIFIED HEALTH STATUS SNOMED Code(s): 860476544 Status and Disposition: Inpatient for right tib/fib fracture. Will be discharged to [place] [facility] tomorrow after Dialysis.
[2017-07-17] MEDS: Donepezil TAB* 5 MG PO SCH (21:38)
[2017-07-17] MEDS: Sertraline* 50 MG TAB PO SCH (21:38)
[2017-07-17] MEDS: Cinacalcet TAB* 30 MG PO SCH (21:38)
[2017-07-17] MEDS: Amiodarone TAB* 200 MG PO SCH (21:38)
[2017-07-18 08:23] VITALS: BP 126/46
[2017-07-18] MEDS: Apixaban* 2.5 MG TAB PO SCH (08:56)
[2017-07-18] MEDS: Metoprolol Tartrate TAB* 25 MG PO SCH (09:03)
[2017-07-18] MEDS: Allopurinol TAB* 100 MG PO SCH (09:04)
[2017-07-18] MEDS: oxyCODONE/Acetamin 5/325 MG* TAB PO PRN (09:04)
[2017-07-18] MEDS: Docusate CAP* 100 MG PO SCH (09:15)
[2017-07-18] MEDS: [UNRECOGNIZED DRUG - OTHER] PO SCH (09:15)
[2017-07-18 09:33] LABS: Hematocrit 26 % (35-47); Hemoglobin 8.3 g/dl (12.0-16.0); Mean Corpuscular HGB Conc 32 g/dl (31-36); Mean Corpuscular Hemoglobin 30 pg (27-31); Mean Corpuscular Volume 93 fL (80-97); Mean Platelet Volume 8 um3 (7.4-10.4); Red Blood Count 2.75 10^6/ul (4.0-5.4); Red Cell Distribution Width 19 % (10.5-15); White Blood Count 8.8 10^3/ul (3.5-10.8)
[2017-07-18 09:45] LABS: BUN/Creatinine Ratio 10.6 (8-20); Calcium 6.6 mg/dL (8.6-10.3); EGFR African American 9.5 (>60); EGFR Non-African American 7.4 (>60)
[2017-07-18 09:47] LABS: Potassium 5.1 mmol/L (3.5-5.0)
[2017-07-18] MEDS ORDERED: guaiFENesin ER TAB 600 MG PO SCH (10:00)
[2017-07-18] MEDS ORDERED: Heparin DIALYSIS ONLY(*) 1,000 UNITS/ML VIAL DIALYSIS ONE (12:00)
[2017-07-18] MEDS ORDERED: Epoetin Alfa* 10,000 UNITS/ML VIAL IV ONE (12:00)
--- NOTE | 2017-07-18 13:09 | DS ---
AMENDED REPORT NOW INCLUDES COSIGNER DESIGNATION - ESIGNED BEFORE ADJUSTMENT DISCHARGE SUMMARY DATE OF ADMISSION: 07/13/2017 DATE OF DISCHARGE: 07/18/2017 PRIMARY CARE DOCTOR: Dr. Margoth Garcia ATTENDING WHILE IN THE HOSPITAL: Dr. Justus Heart * (DICTATED BY WALTER CARRILLO) CONSULTING PROVIDERS: 1. Dr. Salazar Sheehan 2. Dr. Mila Rene PRIMARY DISCHARGE DIAGNOSES: 1. Comminuted slightly displaced spiral fractures of distal right tibia and fibula with ORIF and intramedullary nail of the tibia. 2. End stage renal disease. SECONDARY DISCHARGE DIAGNOSES: 1. Atrial fibrillation. 2. Chronic obstructive pulmonary disease. 3. Asthma. 4. Sick sinus syndrome with pacemaker placement. 5. Hypertension. 6. Hyperlipidemia. 7. Anemia of chronic disease. 8. Anxiety and depression. 9. Spinal fusion. STUDIES DONE WHILE IN THE HOSPITAL: 1. Chest x-ray from 07/13/17 read as in the correct clinical setting constellations of this finding could represent cardiogenic pulmonary edema, otherwise stable from previous studies. 2. EKG shows normal sinus rhythm with occasional atrial pacing, slight ST segment depression in lead II, III and V consistent with previous studies, 1 PVC , no other ST segment changes, no other abnormalities. 3. EKG from 07/16/17. Atrial pacing increase over previous studies. Peaked symmetrical T waves in V2. No other significant changes. 4. Lower extremity x-ray from 07/13/17 read as comminuted and slight displaced spiral fractures involving the distal right tibia and fibula. 5. Pelvic x-ray 07/13/17 read as old fracture of the right greater trochanter. If the patient's symptoms persist recommend followup imaging. Status post open reduction internal fixation of an intertrochanteric fracture of the left femur. 6. Brain CT read as no intracranial mass or hemorrhage noted. 7. Lower extremity x-ray from 07/15/17 read as status post open reduction internal fixation of fracture of distal tibia. MEDICATIONS ON DISCHARGE: 1. Rosuvastatin 5 mg p.o. at bedtime. 2. Allopurinol 100 p.o. q.a.m. 3. Metoprolol 25 mg p.o. b.i.d. 4. Benadryl 25 mg p.o. at bedtime. 5. Fosamax 700 mg p.o. weekly. 6. Sevelamer carbonate 800 mg p.o. t.i.d. 7. Sensipar 30 mg p.o. at bedtime. 8. Vitamin D 2000 units p.o. daily. 9. Vitamins with minerals 2 tabs p.o. b.i.d. 10. Amiodarone 200 mg p.o. at bedtime. 11. Aricept 25 mg p.o. at bedtime. 12. Eliquis 25 mg p.o. b.i.d. 13. Amidrine 5 mg p.o. Sunday, Sunday and Sunday at 9 a.m. with dialysis. 14. Zoloft 50 mg p.o. at bedtime. 15. Jesi-Vikas 1 tab p.o. daily. 16. Tylenol 350 mg every 4 hours as needed for pain. 17. Albuterol ipratropium nebulizer solution 1 nebulizer inhalation every 4 hours as needed for wheezing. 18. Docusate 100 mg p.o. b.i.d. as needed for constipation. 19. MiraLax 17 g p.o. daily as needed for constipation. 20. Mucinex 1200 mg p.o. b.i.d. 21. Percocet 2 tabs p.o. every 6 hours as needed for moderate to severe pain. 22. Percocet 325 one tab p.o. every 6 hours as needed for moderate pain. NEW MEDICATIONS AT DISCHARGE: 1. DuoNeb. 2. Docusate. 3. Polyethylene glycol. 4. Guaifenesin. 5. Percocet. DISCONTINUED MEDICATIONS AT DISCHARGE: 1. Tramadol 50 mg p.o. b.i.d. p.r.n. HOSPITAL COURSE: This is a brief summary of patient's presentation. For more details please see the History and Physical from Dr. Sheila Owens on . In brief, patient is an 87-year-old female with past medical history significant for ESRD, afib on anticoagulation, who had a mechanical fall on the morning of 07/13/17 and fell hitting her head. Came to the Emergency Department , found to have spiral right tibia and fibula fracture, was splinted and admitted for management. Patient's laboratory evaluation showed white blood cells 13.3, red blood cells 3.66, hemoglobin 10.7, hematocrit 34. Hemoglobin was at the patient's baseline. Patient's BUN was 46 and creatinine was 4.4 on admission. Patient's AST was 100 and ALT was 103. Patient's troponin was 0.03. Patient's urinalysis showed 2+ protein, but was otherwise benign. Patient was seen by Dr. Mila Rene on 07/13 in consultation and it was decided Dr. Sheehan would decide whether or not the patient would undergo surgery. Dr. Sheehan saw the patient on 07/14 and operative treatment was decided to be pursued due to significantly speed up the patient's recovery. Patient's Eliquis was held and surgery was scheduled after the last dose. Patient received dialysis while in the hospital. Patient's pain was controlled but she felt tired. She was wearing oxygen in the hospital but there was no increased shortness of breath from when she was at home where she also intermittently wears oxygen. Patient was on day #5 of 7 of a course of prednisone for bronchitis when she was admitted. Patient was n.p.o. after midnight. From 07/15 to 07/17 the patient's transaminitis resolved. Overnight from 07/13 to 07/14 patient's hemoglobin dropped from 10.7 to 9.2, both of which are near the patient's baseline. Patient was asymptomatic. Patient went to surgery on 07/15. Please see Dr. Sheehan's operative report for more detail, but the surgery was uneventful and the patient tolerated the procedure well. On 07/15, after the surgery, patient was ordered nonweightbearing. Patient's Eliquis was restarted that night. On 07/16 patient's hemoglobin dropped to 7.5 from 8.6 which was on the morning of 07/15. Patient's potassium was also up to 5.5. Patient's creatinine throughout the hospital stay had been between 4 and 6 which is her baseline as she has end stage renal disease. Patient's EKG as described above showed a single peaked T wave but the patient was otherwise asymptomatic. Patient went to dialysis and was transfused 1 unit of packed red blood cells. Patient was asymptomatic from her anemia and her potassium. Patient's H\T\H came up to 1.5 one hour after dialysis was completed. Patient's pain continued to be controlled on 07/16, but the patient stated that she does not want to go to short term rehab and was working with physical therapy who recommended a Janet lift for transfers due to her inability to keep pressure off of her nonweightbearing leg. Social work was involved as the patient's daughter was not comfortable with her coming home with the patient's nonweightbearing status and was pushing for short term rehab which was also the opinion of the physical therapy and the orthopedic surgeon. Patient's hemoglobin came up to 9.3 on with her potassium returning to 4.2. Patient on 07/17 said she felt lousy and had wheezes in her lungs. The patient has history of asthma and COPD. Wheezes improved significantly with DuoNeb treatment which was ordered. Patient decided, after talking to her daughter, that she would go to rehab and her paperwork was sent out to [facility] who offered her a bed which she accepted. On 07/18 patient's hemoglobin dropped to 8.3, but she otherwise remained asymptomatic. Patient's potassium was 5.1. She remained asymptomatic from that as well and actually felt very good on the day of 07/18. Patient at the time of this dictation is at dialysis and will be discharged to [place] after that is completed. Patient's transaminase was shown to be completely resolved on the day of 07/17. PHYSICAL EXAM ON DAY OF DISCHARGE: General: The patient is an 87-year-old female who appears stated age and is sitting comfortably in the bed, in no acute distress. Vital Signs: On 07/18/17 at 0822 temperature 98, pulse rate 70, respiratory rate 20, oxygen saturation 96% on 2L, and blood pressure 123/46. HEENT: Head: Normocephalic, atraumatic. Sclerae anicteric. No conjunctival injection. Pharynx nonerythematous. Mucous membranes moist. Neck: Supple, nontender. No lymphadenopathy. No carotid bruits auscultated. Cardiac: Regular rhythm. Grade 3/6 systolic ejection murmur heard best at the aortic area. Grade 2/6 holosystolic murmur heard best at the apex. Regular, no other clicks, gallops or rubs. Pulses 2+ in the bilateral radial and the left dorsal pedis and posterior tibialis areas. Capillary refill intact in the right foot distal to the cast. Respiratory: Rhonchi and late expiratory wheezes similar to exam on 07/17 heard in the bilateral lung lower and middle phillips. Patient is on 2L of oxygen, good air exchange bilaterally. No other adventitious lung sounds. Abdomen: Soft, nontender, nondistended. Bowel sounds present, normoactive in all 4 quadrants. No hepatosplenomegaly. Genitourinary: No CVA tenderness, no suprapubic tenderness. Extremities: Patient has a bulky dressing on her right foot. Patient is neurovascularly intact distal to the extremity with normal capillary refill. Stable decrease in sensation on her right foot and intact movement. Skin: Clean, dry and intact. No edema. Neuro: Cranial nerves II through XII grossly intact. Relations Director strength preserved. Alert and oriented x3. Psychiatric: Patient is euthymic, pleasant and cooperative. LABORATORY DATA ON DAY OF DISCHARGE: White blood cell count 8.8, hemoglobin 8.3 , hematocrit 26. Sodium 132, potassium 5.1, chloride 96, anion gap 13, BUN 58, creatinine 5.49, glucose 116, calcium 6.6. DISCHARGE PLAN: The patient will be discharged to [facility] for short term rehab while she is nonweightbearing on her leg with the goal that she will be able to return home with her daughter after her functional status is returned and she is no longer nonweightbearing on her leg. Patient will continue medications from home with the additions as stated above. For pain control patient will have Percocet 2 tabs every 6 hours as needed for moderate to severe pain, and 1 tab every 6 hours for moderate pain. Patient will also have Tylenol 650 mg p.o. every 4 hours as needed for mild pain. Patient will continue with dialysis Sunday, Sunday and Sunday where she normally does at [facility]. Patient will followup with her primary care doctor as scheduled on 07/29/17 for medication management and general health care. Patient should followup with her transmission and protection engineer as scheduled. Patient should followup with Dr. Sheehan in 1-2 weeks as scheduled through his office. Patient should be 2 assist to a Janet lift out of bed to avoid weightbearing on that leg for minimum 2 weeks after the surgery; this will be updated after she sees Dr. Sheehan. Patient should work with physical therapy and occupational therapy as tolerated to increase her functional capacity. Patient should be on a renal diet with decaf okay, but no other caffeine due to atrial fibrillation which is rhythm controlled. TIME SPENT: Approximately 60 minutes were spent on the discharge, half of which were spent [id number] with the patient and her family obtaining history and physical and discussing treatment options. WALTER CARRILLO [id number]/[facility] #: [id number] KELLY
== END 2017-07-18 14:15 | DRG 492 ==
LOC: ED 05:04 → MED 07:26 → OBSVTOIN 07:40
PROVIDERS: ADMIT Internal Medicine; ATTEND Internal Medicine
PROC: 0QSG06Z Reposition Right Tibia with Intramedullary Internal Fixation Device, Open Approach (ICD-10-PCS; 2017-07-13)
PROC: 5A1D70Z Performance of Urinary Filtration, Intermittent, Less than 6 Hours Per Day (ICD-10-PCS; 2017-07-14)
PROC: 30233N1 Transfusion of Nonautologous Red Blood Cells into Peripheral Vein, Percutaneous Approach (ICD-10-PCS; principal; 2017-07-16)
PROC: 5A1D70Z Performance of Urinary Filtration, Intermittent, Less than 6 Hours Per Day (ICD-10-PCS; 2017-07-16)
PROC: 5A1D70Z Performance of Urinary Filtration, Intermittent, Less than 6 Hours Per Day (ICD-10-PCS; 2017-07-18)
DX: S82.241A Displaced spiral fracture of shaft of right tibia, initial encounter for closed fracture (principal); N18.6 End stage renal disease; I12.0 Hypertensive chronic kidney disease with stage 5 chronic kidney disease or end stage renal disease; I48.0 Paroxysmal atrial fibrillation; J44.9 Chronic obstructive pulmonary disease, unspecified; Z96.642 Presence of left artificial hip joint; D63.8 Anemia in other chronic diseases classified elsewhere; S82.441A Displaced spiral fracture of shaft of right fibula, initial encounter for closed fracture; F32.9 Major depressive disorder, single episode, unspecified; Z99.2 Dependence on renal dialysis; Z95.0 Presence of cardiac pacemaker; M19.90 Unspecified osteoarthritis, unspecified site; F41.9 Anxiety disorder, unspecified; H40.9 Unspecified glaucoma; H54.8 Legal blindness, as defined in USA; Z82.49 Family history of ischemic heart disease and other diseases of the circulatory system; Z86.14 Personal history of Methicillin resistant Staphylococcus aureus infection; Z98.1 Arthrodesis status; Z88.8 Allergy status to other drugs, medicaments and biological substances; Z83.3 Family history of diabetes mellitus; Z80.42 Family history of malignant neoplasm of prostate; Z80.8 Family history of malignant neoplasm of other organs or systems; W01.0XXA Fall on same level from slipping, tripping and stumbling without subsequent striking against object, initial encounter; Z79.01 Long term (current) use of anticoagulants; Y92.009 Unspecified place in unspecified non-institutional (private) residence as the place of occurrence of the external cause; D64.9 Anemia, unspecified
CPT/HCPCS: 36415; 70450; 71010; 72170; 76001; 80048; 80053; 80076; 81003; 81015; 83735; 84100; 84484; 85014; 85018; 85025; 85610; 86850; 86900; 86901; 86922; 87641; 90935; 93005; 94760; A9270-GY; C1713; C1776; G0257; J0690; J0885; J1100; J1644; J2001; J2250; J2270; J2704; J3010; P9040

== ENCOUNTER 2017-11-08 15:25 | Observation (INO) | payer MEDICARE, BC ==
[2017-11-09] MEDS ORDERED: diPHENhydraMINE PO* 25 MG PO PRN (01:14)
[2017-11-09] MEDS ORDERED: Heparin VIAL(*) 5000 UNITS/ML VIAL (FIVE THOUSAND) SUBCUT SCH (06:00)
[2017-11-09 06:52] LABS: ABS Basophils 0.1 10^3/ul (0-0.2); ABS Eosinophils 0 10^3/ul (0-0.6); ABS Lymphocytes 0.9 10^3/ul (1.0-4.8); ABS Monocytes 0.6 10^3/ul (0-0.8); ABS Neutrophils 4.3 10^3/ul (1.5-7.7); ABS Nucleated RBC 0 10^3/ul; Eosinophil % 0.7 % (0-6); Hematocrit 35 % (35-47); Hemoglobin 11.3 g/dl (12.0-16.0); Lymphocyte % 15.1 % (25-47); Mean Corpuscular HGB Conc 32 g/dl (31-36); Mean Corpuscular Hemoglobin 28 pg (27-31); Mean Corpuscular Volume 87 fL (80-97); Mean Platelet Volume 8 um3 (7.4-10.4); Nucleated Red Blood Cells % 0.1; Platelet Count 141 10^3/ul (150-450); Red Blood Count 4.05 10^6/ul (4.0-5.4); Red Cell Distribution Width 20 % (10.5-15); White Blood Count 5.9 10^3/ul (3.5-10.8)
[2017-11-09 07:09] LABS: EGFR Non-African American 9.8 (>60)
[2017-11-09 07:18] LABS: Vancomycin Trough 8.2 mcg/mL
--- NOTE | 2017-11-09 07:18 | HP ---
CC: Dr. Cedeno * HISTORY AND PHYSICAL: DATE OF ADMISSION: 11/09/17 PRIMARY CARE PROVIDER: Dr. Cedeno. CHIEF COMPLAINT: Pneumonia. HISTORY OF PRESENT ILLNESS: Ms. Busby is an 87-year-old female with a history of end-stage renal disease on dialysis Sunday, Sunday, and Fridays at [facility], sick sinus syndrome, status post pacemaker placement, paroxysmal atrial fibrillation, COPD and asthma, hypertension, and hyperlipidemia, who presented to [facility] with complaints of shortness of breath, nonproductive cough, and chills. The patient reportedly did not feel well for over one week. The patient was admitted to [facility]. The patient was diagnosed with healthcare-associated pneumonia. The patient was started on broad- spectrum antibiotics. The patient was noted to have an increase in her creatinine from 1.8 to 3.0 on the second day of hospitalization, and therefore the case was discussed with her primary supply chain analyst. It was recommended that the patient to be transferred to a facility that has dialysis capabilities. The patient was accepted and transferred to [facility] by the hospitalists and Dr. Choi, who will be directing her dialysis care. The patient at this point states that point she continues to have a dry cough. She has had some intermittent wheezing. She denies any sputum production. She denies any fever. She does admit to chills. Additionally, she also admits to poor appetite over the last few days, and state that anytime she eats at this point, she will have diarrhea quite quickly. She also complains of dysuria. PAST MEDICAL HISTORY: 1. End-stage renal disease on dialysis Sunday, Sunday, and Sunday. 2. Sick sinus syndrome, status post pacemaker placement. 3. Paroxysmal atrial fibrillation. 4. COPD and asthma, on O2 p.r.n. 5. Hyperlipidemia. 6. Hypertension. 7. Anemia of chronic kidney disease. 8. Anxiety/depression. PAST SURGICAL HISTORY: 1. Back surgery x2. 2. ORIF left hip in August 2016. 3. ORIF right hip in January 2017. 4. Hysterectomy. 5. Right foot and ankle ORIF. 6. Fistula right upper extremity. 7. Tibia intramedullary nail placement in July 2017. MEDICATIONS: 1. Vitamin D 2000 units p.o. daily. 2. Metamucil one pack p.o. b.i.d. 3. Protonix 40 mg p.o. daily. 4. Tylenol 1350 mg p.o. b.i.d. p.r.n. pain. 5. Benadryl 0.5 mg p.o. q.h.s. p.r.n. insomnia. 6. Fosamax 70 mg p.o. weekly. 7. Nephro-Vikas one tab p.o. daily. 8. Sensipar 30 mg p.o. daily. 9. Allopurinol 100 mg p.o. daily. 10. Amiodarone 200 mg p.o. q.h.s. 11. Colace 100 mg p.o. b.i.d. 12. Donepezil 5 mg p.o. q.h.s. 13. Zoloft 50 mg p.o. q.h.s. 14. Renvela 800 mg p.o. t.i.d. 15. Vancomycin. 16. Zosyn. ALLERGIES: CARLIN INHIBITORS and NSAIDS. FAMILY HISTORY: Patient's father at age 55 of an [place]. Patient's daughter has a history of diabetes. SOCIAL HISTORY: The patient is a nonsmoker. She does not drink alcohol. She worked in a [employer] store. She is . She currently resides at [facility] following the of her daughter, Katya. She has six children. REVIEW OF SYSTEMS: A complete 11-system review of systems is obtained. Pertinent positives and negatives are as per the HPI, and otherwise negative. PHYSICAL EXAMINATION GENERAL: The patient is a well-developed, elderly female sitting up in the bed in no acute distress. VITAL SIGNS: Pending. HEENT: Pupils are equal and round. Extraocular muscles are intact. Oropharynx is clear. Oral mucosa is moist. Patient wears upper and lower dentures. There is no submandibular, cervical, or supraclavicular adenopathy. Thyroid is not enlarged. No thyroid nodules are noted. PULMONARY: There are few right basilar crackles. Otherwise, lungs are clear and diminished. CARDIAC: Normal S1, S2. Regular rate and rhythm. I do not appreciate any murmurs. There is no lower extremity edema. There are chronic venostasis changes to the right greater than left lower extremity. ABDOMEN: Bowel sounds present. Abdomen is soft, nontender, nondistended. MUSCULOSKELETAL: There is no cyanosis or clubbing of the digits. There is full active range of motion of all 4 extremities. SKIN: Warm and dry. There are no rashes. There is a small, approximately 3 to 4 mm, black round wound to the plantar surface of the right first toe. The patient states that this is secondary to her boot being placed inappropriately. NEUROLOGIC: Cranial nerves II through XII are grossly intact. Sensation is intact to light touch throughout. Strength is 5/5 and symmetric in both upper and lower extremities bilaterally. PSYCH: The patient is alert, she is oriented x3. Affect appears appropriate. LABORATORY DATA: These are obtained at [facility]: WBC 6.3, hemoglobin 11.9, hematocrit 39, platelets 142,000, sodium 142, potassium 4.9, chloride 104, CO2 34, BUN 17, creatinine 3.0, glucose 49. Blood cultures are no growth so far. IMAGING: CT chest - COPD changes, increased markings in the bilateral lung phillips suggestive of interstitial edema/mild CHF. Questionable superimposed right upper lobe pneumonia. A 5 mm nodule was seen in the right upper lobe which was not present in July 2017, raising concerns for malignancy. There is stable mediastinal lymphadenopathy. There is moderate cardiomegaly. There are trace bilateral pleural effusions tracking along the bilateral major fissures. There's a trace amount of ascites seen inferior to the right hemidiaphragm. EKG from 11/07/17 - the patient appears to be atrial paced. ASSESSMENT AND PLAN: Ms. Busby is an 87-year-old female who has a history of end- stage renal disease, atrial fibrillation, anxiety/depression, COPD, hypertension, and hyperlipidemia who presents to the emergency room at [facility] with complaints of shortness of breath and cough, and was diagnosed with healthcare- associated pneumonia, and ultimately transferred to [facility] for further treatment of her healthcare-associated pneumonia in addition to dialysis care. 1. Healthcare-associated pneumonia. The patient's chest CT is questionable for a right upper lobe infiltrate. I will check a procalcitonin level tomorrow morning when I check the morning labs. While she has cough and chills, she does not have an elevated white blood cell count or fever. Healthcare- associated pneumonia seems not very likely. However, I will go ahead and continue Bernardo and Zosyn for now. 2. Paroxysmal atrial fibrillation. The patient will continue on her amiodarone 200 mg p.o. q.h.s. She does not appear to be on an anticoagulant based on her dialysis chart that came with her. However, Hermilo is listed on history and physical from [place] [place]. We will need to get an accurate medication list from [facility] later this morning. 3. Hypertension. We will continue her home medication regimen for now and monitor her blood pressure. Adjustments will be made as necessary. 4. Anxiety/depression. We will continue Zoloft 50 mg daily. 5. Mild dementia. Continue donepezil 5 mg p.o. q.h.s. 6. End-stage renal disease. Patient will be evaluated by Dr. Choi tomorrow. Sunday is a usual dialysis day for her and she should receive dialysis. 7. Pulmonary nodule. This is new from CT scan done in 2006. This will need to be followed up in 3 to 6 months. 8. DVT prophylaxis. According to the Adult Thrombosis Prophylaxis Risk Factor Assessment Guide, the patient has a total risk factor score of 3, making her high risk. Heparin 5000 units subcutaneous q. 8 hours will be utilized as DVT prophylaxis. 9. Code status is DNR. TIME SPENT: Fifty-five minutes were spent admitting this patient. [id number]/[facility] #: [id number] KELLY
[2017-11-09] MEDS: Allopurinol TAB* 100 MG PO SCH (08:29)
[2017-11-09] MEDS: Piperacillin/Tazobac ADVAN(*) 3.375 GM in NS 0.9% 100 ML* 100 ML IVPB SCH ×2 (08:29→21:04)
[2017-11-09] MEDS: Sevelamer TAB* 800 MG PO SCH ×3 (08:29→18:00)
[2017-11-09] MEDS: Omeprazole CAP* 20 MG PO SCH (08:29)
[2017-11-09] MEDS: Docusate CAP* 100 MG PO SCH ×2 (08:29→21:04)
[2017-11-09] MEDS: Vitamin THERAPEUTIC TAB PO SCH (08:29)
[2017-11-09] MEDS: Psyllium PAK PO SCH ×2 (08:30→21:07)
[2017-11-09] MEDS: Albuterol/Ipratropium NEB.SOL* Albuterol 2.5 MG/Ipratropium 0.5 MG 3 ML INH PRN ×2 (10:34→21:22)
--- NOTE | 2017-11-09 12:07 | PN ---
Subjective Date of Service: 11/09/17 Interval History: Somewhat better, still feels weak. Some cough. Objective Active Medications: Albuterol/Ipratropium (Duoneb (Albuterol 2.5 Mg/Ipratropium 0.5 Mg)) 1 neb INH Q6H PRN PRN Reason: SOB/WHEEZING Last Admin: 11/09/17 10:34 Dose: 1 neb Allopurinol (Zyloprim Tab*) 100 mg PO QAM [facility] Last Admin: 11/09/17 08:29 Dose: 100 mg Amiodarone HCl (Cordarone Tab*) 200 mg PO BEDTIME MARGARET Apixaban (Eliquis) 2.5 mg PO BID [facility] Atorvastatin Calcium (Lipitor*) 10 mg PO BEDTIME [facility] PRN Reason: Protocol Cinacalcet (Sensipar Tab*) 30 mg PO BEDTIME MARGARET Diphenhydramine HCl (Benadryl Po*) 25 mg PO BEDTIME PRN PRN Reason: INSOMNIA Docusate Sodium (Colace Cap*) 100 mg PO BID [facility] Last Admin: 11/09/17 08:29 Dose: 100 mg Donepezil HCl (Aricept Tab*) 5 mg PO BEDTIME [facility] Folic Acid (Folvite Tab*) 0.5 mg PO DAILY [facility] Guaifenesin (Robitussin*) 10 ml PO QID [facility] Piperacillin Sod/Tazobactam (Sod 3.375 gm/ Sodium Chloride) 100 mls @ 25 mls/ hr IVPB Q12H [facility] Last Admin: 11/09/17 08:29 Dose: 25 mls/hr Metoprolol Succinate (Toprol Xl Tab*) 25 mg PO BID [facility] Midodrine (Midodrine (Nf)) 5 mg PO MoWeFr@0900 [facility] PRN Reason: Protocol Multivitamins (Theragran Tab*) 1 tab PO DAILY [facility] Last Admin: 11/09/17 08:29 Dose: 1 tab Omeprazole (Prilosec Cap*) 20 mg PO DAILY@0730 [facility] Last Admin: 11/09/17 08:29 Dose: 20 mg Psyllium Hydrophilic Mucilloid (Metamucil [place]*) 1 pkt PO BID [facility] Last Admin: 11/09/17 08:30 Dose: Not Given Sertraline HCl (Zoloft*) 50 mg PO BEDTIME [facility] Sevelamer Carbonate (Renvela Tab*) 800 mg PO TID WITH MEALS [facility] PRN Reason: Protocol Last Admin: 11/09/17 11:17 Dose: 800 mg Vitamin B Complex/Vitamin E (Complex B-100*) 1 tab PO DAILY [facility] Vital Signs - 8 hr 11/09/17 11/09/17 11/09/17 04:25 07:48 10:36 Temperature 98.2 F 98.2 F Pulse Rate 75 72 73 Respiratory 24 20 20 Rate Blood Pressure 127/51 167/63 (mmHg) O2 Sat by Pulse 100 98 99 Oximetry Oxygen Devices in Use Now: Nasal Cannula Appearance: Alert, on her side in bed. In fair spirits. Looks comfortable. Eyes: No Scleral Icterus Neck: NL Appearance and Movements; NL JVP, No Thyroid Enlargement, Masses Respiratory: Symmetrical Chest Expansion and Respiratory Effort, Clear to Auscultation, Clear to Percussion Cardiovascular: NL Sounds; No Murmurs; No JVD, RRR, No Edema, - Extremities: No Edema, No Clubbing, Cyanosis, - Skin: No Rash or Ulcers, No Nodules or Sclerosis, - Neurological: Alert and Oriented x 3, NL Sensation Result Diagrams: 11/09/17 06:17 11/09/17 06:18 Assess/Plan/Problems-Billing Assessment: - Patient Problems (1) Pneumonia Current Visit: Yes Status: Acute Code(s): J18.9 - PNEUMONIA, UNSPECIFIED ORGANISM SNOMED Code(s): 345078483 Comment: Continue pip/alexandra, neb meds. Consider oral antibiotic 11/10. (2) ESRD (end stage renal disease) on dialysis Current Visit: No Status: Acute Code(s): N18.6 - END STAGE RENAL DISEASE; Z99.2 - DEPENDENCE ON RENAL DIALYSIS SNOMED Code(s): 931900818 Comment: HD MWF in [place], will get HD here 11/09/17. Continue HD meds. (3) COPD (chronic obstructive pulmonary disease) Current Visit: No Status: Chronic Code(s): J44.9 - CHRONIC OBSTRUCTIVE PULMONARY DISEASE, UNSPECIFIED SNOMED Code(s): 18331899 Comment: Continue O2, neb meds. (4) Hypertension Current Visit: No Status: Acute Code(s): I10 - ESSENTIAL (PRIMARY) HYPERTENSION SNOMED Code(s): 74168668 Comment: BP controlled; Continue Lopressor (5) Atrial fibrillation Current Visit: No Status: Chronic Code(s): I48.91 - UNSPECIFIED ATRIAL FIBRILLATION SNOMED Code(s): 66781721 Comment: Continue Amiodarone, Lopressor, and Eliquis
[2017-11-09] MEDS: Apixaban* 2.5 MG TAB PO SCH ×2 (12:58→21:04)
[2017-11-09] MEDS: guaiFENesin LIQ* 100 MG/5 ML UDC PO SCH ×3 (14:01→21:04)
[2017-11-09] MEDS ORDERED: Heparin DIALYSIS ONLY(*) 1,000 UNITS/ML VIAL DIALYSIS ONE (16:00)
[2017-11-09] MEDS ORDERED: Amiodarone TAB* 200 MG PO SCH (21:00)
[2017-11-09] MEDS ORDERED: Donepezil TAB* 5 MG PO SCH (21:00)
[2017-11-09] MEDS ORDERED: Sertraline* 50 MG TAB PO SCH (21:00)
[2017-11-09] MEDS ORDERED: Cinacalcet TAB* 30 MG PO SCH (21:00)
[2017-11-09] MEDS ORDERED: Atorvastatin* 10 MG TAB PO SCH (21:00)
[2017-11-09] MEDS: Metoprolol Succinate XL TAB* 25 MG PO SCH (21:07)
[2017-11-10] MEDS ORDERED: NS 0.9% 100 ML* 100 ML ONE (08:33)
[2017-11-10] MEDS: Piperacillin/Tazobac ADVAN(*) 3.375 GM in NS 0.9% 100 ML* 100 ML IVPB SCH (08:46)
[2017-11-10] MEDS: Psyllium PAK PO SCH (08:49)
[2017-11-10] MEDS: guaiFENesin LIQ* 100 MG/5 ML UDC PO SCH ×2 (08:49→13:03)
[2017-11-10] MEDS: Apixaban* 2.5 MG TAB PO SCH (08:49)
[2017-11-10] MEDS: Sevelamer TAB* 800 MG PO SCH ×2 (08:50→13:03)
[2017-11-10] MEDS: Omeprazole CAP* 20 MG PO SCH (08:50)
[2017-11-10] MEDS: Allopurinol TAB* 100 MG PO SCH (08:51)
[2017-11-10] MEDS: Docusate CAP* 100 MG PO SCH (08:51)
[2017-11-10] MEDS: Vitamin THERAPEUTIC TAB PO SCH (08:52)
[2017-11-10] MEDS: Metoprolol Succinate XL TAB* 25 MG PO SCH (08:53)
[2017-11-10 08:59] VITALS: BP 153/43
[2017-11-10] MEDS ORDERED: NEPHRO VITE 0.8 MG PO SCH (09:00)
[2017-11-10] MEDS ORDERED: Mometasone/Formoter 200/5 MDI INH SCH (09:00)
[2017-11-10] MEDS ORDERED: Vitamin B Complex TAB PO SCH (09:00)
[2017-11-10] MEDS ORDERED: Folic Acid TAB* 1 MG PO SCH (09:00)
[2017-11-10] MEDS: Albuterol/Ipratropium NEB.SOL* Albuterol 2.5 MG/Ipratropium 0.5 MG 3 ML INH PRN (09:49)
[2017-11-10] MEDS ORDERED: metroNIDAZOLE TAB* 250 MG PO SCH (11:30)
[2017-11-10] MEDS ORDERED: Vancomycin CAP* 125 MG CAP PO SCH (13:00)
--- NOTE | 2017-11-10 14:08 | TRS ---
CC: Dr. Marli Henning TRANSFER SUMMARY: DATE OF ADMISSION: 11/09/2017 DATE OF TRANSFER: 11/10/17 HOSPITAL COURSE: This 87-year-old woman who was transferred from [facility] for continued jackson atment of the pneumonia and for in hospital hemodialysis. The patient tells me she is a resident of [facility] and has been on hemodialysi s for 11 years. She has history of COPD and asthma. She developed shortness of breath with nonprodu ctive cough and chills and went to [facility] and was admitted to [facility] on 0 11/07/17. She had four sets of blood cultures a total of 8 bottles, all of which showed no growth at the time of this dictation. She was started on broad-spectrum antibiotics. The patient requested jesusita thornton to [facility] for in hospital hemodialysis which is not available at [facility]. This was done and the patient was dialyzed on 11/09/17. She is returning to the [facility] a nd can have her usual hemodialysis as scheduled on 11/12/17. She did well in the hospital. On the day of discharge, there was very mild end expiratory wheezing. The patient felt much better than when she was admitted to [facility], although not entirely back to normal. I am going to start her on Dulera 200/5 two puffs b.i.d. to help with the wheezing. She was given Zosyn until the time of discharge. I have recommended she be on amoxicillin/clavulanat e 875 mg b.i.d. for 7 days following discharge. She had diarrhea in the hospital. C. diff PCR is pending. Possibly her diarrhea is related to the p iperacillin and tazobactam, although the PCR is pending. No specific treatment was given for this. Changing to amoxicillin/clavulanate may be the only treatment for the diarrhea needed. C. diff PCR s hould be followed up on. FINAL DIAGNOSES: 1. Pneumonia. 2. Chronic obstructive pulmonary disease. 3. End-stage renal disease. 4. Sick sinus syndrome. 5. Hyperlipidemia. 6. Hypertension. MEDICATIONS ON TRANSFER: 1. Amoxicillin/clavulanate 875 mg b.i.d. for 7 days. 2. Cinacalcet 30 mg h.s. 3. Folic acid 0.5 mg daily. 4. Guaifenesin 10 mL 4 times a day 5. Mometasone/formoterol 200/5 two puffs b.i.d. 6. Multivitamin daily. 7. Rosuvastatin 5 mg h.s. 8. Allopurinol 100 mg daily. 9. Diphenhydramine 25 mg h.s. p.r.n. 10. Alendronate 70 mg every Sunday. 11. Sevelamer 800 mg t.i.d. 12. Vitamin D3 of 2000 units daily. 13. Eye vitamins and minerals two tabs b.i.d. 14. Amiodarone 200 mg h.s. 15. Omeprazole 5 mg h.s. 16. Apixaban 2.5 mg b.i.d. 17. Midodrine 5 mg Sunday, Sunday, and Sunday at 9 a.m. before dialysis. 18. Sertraline 50 mg h.s. 19. Pantoprazole 40 mg daily. 20. Senna 17.2 mg daily p.r.n. 21. Nephro-Vikas 0.8 mg daily. 22. Metoprolol succinate 25 mg b.i.d. 23. Acetaminophen 1350 as prescribed. 24. DuoNeb inhalation every 6 hours p.r.n. DISPOSITION: The patient is transferred to [facility] [id number]/[facility] #: [id number]
[2017-11-10] MEDS ORDERED: Amoxicillin/Clavulanate TAB* 500 MG PO SCH (21:00)
[2017-11-10] MEDS ORDERED: Amoxicillin/Clavulanate TAB* 875 MG PO SCH (21:00)
[2017-11-12] MEDS ORDERED: CMCS Midodrine (NF) 5 MG TAB PO SCH (09:00)
== END 2017-11-10 14:35 ==
LOC: MEDTELE 11-09 00:54
PROVIDERS: ADMIT Internal Medicine; ATTEND Internal Medicine
DX: J18.9 Pneumonia, unspecified organism (principal); J44.9 Chronic obstructive pulmonary disease, unspecified; N18.6 End stage renal disease; I49.5 Sick sinus syndrome; E78.5 Hyperlipidemia, unspecified; I10 Essential (primary) hypertension
CPT/HCPCS: 36415; 80048; 80202; 84145; 85025; 86140; 87493; 90935; 94640; 94760; A9270-GY; G0378; J1644; J2543

== ENCOUNTER 2019-01-31 17:38 | Emergency (ER) | payer MEDICARE, OTHER, BC ==
--- NOTE | 2019-01-31 18:05 | ED ---
Complex/Multi-Sys Presentation - HPI Summary HPI Summary: An 88 y/o female brought in by [facility] presents to [facility] with a chief complaint of bleeding from her dialysis fistula site today which has since resolved from staff at the [facility]. The patient has a bruise on her right arm. She rates her pain as a 3/10 in severity. Pt denies any fever, chills, erythema of eyes, sore throat, CP, SOB, cough, abdominal pain, N/V, dysuria, hematuria, myalgia, edema, rash, or dizziness. - History Of Current Complaint Time Seen by Provider: 01/31/19 17:53 Hx Obtained From: Patient, EMS Onset/Duration: Sudden Onset, Lasting Minutes, Resolved Timing: Intermittent, Lasting: - hours Severity Currently: Mild Severity Initially: Mild Character: Unable To Describe Aggravating Factor(s): nothing Alleviating Factor(s): nothing Associated Signs And Symptoms: Negative: Dizziness, SOB, Cough, Edema, Nausea, Vomiting, Abdominal Pain, Fever - Allergies/Home Medications Allergies/Adverse Reactions: Allergies Allergy/AdvReac Type Severity Reaction Status Date / Time CARLIN Inhibitors AdvReac Coughing Verified 11/09/17 01:18 NSAIDS (Non-Steroidal AdvReac See Comment Verified 11/09/17 01:18 Anti-Inflamma PMH/Surg Hx/FS Hx/Imm Hx Endocrine/Hematology History: Reports: Hx Anemia Denies: Hx Diabetes, Hx Thyroid Disease Cardiovascular History: Reports: Hx Hypercholesterolemia, Hx Hypertension, Hx Pacemaker/ICD, Other Cardiovascular Problems/Disorders - SICK SINUS SYNDROME Respiratory History: Reports: Hx Asthma, Hx Chronic Bronchitis, Hx Chronic Obstructive Pulmonary Disease (COPD) - O2 as needed, Other Respiratory Problems/ Disorders - 02 2L PRN SOB. HAS NOT USED IN 3 WEEKS GI History: Reports: Other GI Disorders - DIARRHEA FOR THE PAST 24 HOURS- STATES IS FEELING BETTER- Denies: Hx Ulcer History: Reports: Hx Chronic Renal Failure, Hx Dialysis, Other Problems/ Disorders - Dialysis Musculoskeletal History: Reports: Hx Arthritis, Hx Back Problems Sensory History: Reports: Hx Contacts or Glasses - GLASSES, Hx Glaucoma - BILAT , Hx Legally Blind Denies: Hx Cataracts, Hx Hearing Aid Opthamlomology History: Reports: Hx Contacts or Glasses - GLASSES, Hx Glaucoma - BILAT, Hx Legally Blind Denies: Hx Cataracts Psychiatric History: Reports: Hx Anxiety - controlled, Hx Depression - controlled - Cancer History Hx Chemotherapy: No - Surgical History Surgery Procedure, Year, and Place: 1955-HYSTERECTOMY. BILAT CATARACT - [facility]. RIGHT ARM FISTULA -[facility] 2013. [facility]. ORIF RIGHT ANKLE 11/15 [facility], Left hip fx 08/2016 Hx Anesthesia Reactions: No - Immunization History Date of Tetanus Vaccine: 2016 Date of Influenza Vaccine: 2015 Infectious Disease History: No Infectious Disease History: Reports: Hx Hepatitis - 1955- "YELLOW JAUNDICE", Hx of Known/Suspected MRSA Denies: Hx Human Immunodeficiency Virus (HIV), Traveled Outside the [place] in Last 30 Days - Family History Known Family History: Positive: Hypertension - Social History Alcohol Use: None Substance Use Type: Reports: None Hx Tobacco Use: No Smoking Status (MU): Never Smoked Tobacco Have You Smoked in the Last Year: No Review of Systems Positive: Other - positive: bleeding from fistula site. Negative: Fever, Chills Negative: Erythema Negative: Sore Throat Negative: Chest Pain Negative: Shortness Of Breath, Cough Negative: Abdominal Pain, Vomiting, Nausea Negative: dysuria, hematuria Negative: Myalgia, Edema Positive: Bruising. Negative: Rash Neurological: Negative - dizziness All Other Systems Reviewed And Are Negative: Yes Physical Exam - Summary Physical Exam Summary: Constitutional: Well-developed, Well-nourished, Alert. (-) Distressed Skin: Warm, Dry, Ecchymosis above right bicep and puncture wounds in dialysis fistula that is no longer bleeding, there is a palpable thrill HENT: Normocephalic; Atraumatic Eyes: Conjunctiva normal Neck: Musculoskeletal ROM normal neck. (-) JVD, (-) Stridor, (-) Tracheal deviation Cardio: Rhythm regular, rate normal, Heart sounds normal; Intact distal pulses; The pedal pulses are 2+ and symmetric. Radial pulses are 2+ and symmetric. (-) Murmur Pulmonary/Chest wall: Effort normal. (-) Respiratory distress, (-) Wheezes, (-) Rales Abd: Soft, (-) tenderness, (-) Distension, (-) Guarding, (-) Rebound Musculoskeletal: (-) Edema Lymph: (-) Cervical adenopathy Neuro: Alert, Oriented x3 Psych: Mood and affect Normal Triage Information Reviewed: Yes Vital Signs On Initial Exam: Initial Vitals Pulse Pulse Ox 78 95 01/31/19 17:45 01/31/19 17:45 Vital Signs Reviewed: Yes Diagnostics - Vital Signs Vital Signs Temp Pulse Resp BP Pulse Ox 01/31/19 17:52 97.4 F 71 18 169/101 94 01/31/19 17:49 75 169/101 94 01/31/19 17:45 78 95 - Laboratory Lab Statement: Any lab studies that have been ordered have been reviewed, and results considered in the medical decision making process. Complex Multi-Symp Course/Dx Course Of Treatment: An 88 y/o female brought in by [facility] presents to [facility] with a chief complaint of bleeding from her dialysis fistula site today which has since resolved from staff at the [facility]. The patient has a bruise on her right arm. The physical exam revealed ecchymosis above right bicep and puncture wounds in dialysis fistula that is no longer bleeding, there is a palpable thrill. There is a small amount of ecchymosis and no significant blood loss. The patient will be discharged home and follow up with her PCP. The patient is agreeable with this plan. - Diagnoses Provider Diagnoses: Hemorrhage from arteriovenous dialysis graft Discharge - Sign-Out/Discharge Documenting (check all that apply): Patient Departure - DC Patient Received Moderate/Deep Sedation with Procedure: No - Discharge Plan Condition: Stable Disposition: HOME Referrals: Margoth Garcia MD [Primary Care Provider] - (2-3 days) Additional Instructions: RETURN TO THE EMERGENCY DEPARTMENT FOR CHANGING OR WORSENING SYMPTOMS - Billing Disposition and Condition Condition: STABLE Disposition: Home - Attestation Statements Document Initiated by Bina: Yes Documenting Scribe: Louie Rojas Provider For Whom Bina is Documenting (Include Credential): Delfino Jefferson MD Scribe Attestation: Louie Agudelo, scribed for Delfino Jefferson MD on 02/14/19 at 0752. Scribe Documentation Reviewed: Yes Provider Attestation: The documentation as recorded by the Louie rutherford accurately reflects the service I personally performed and the decisions made by me, Delfino Jefferson MD Status of Scribe Document: Viewed
[2019-01-31 18:28] VITALS: BP 179/65
== END 2019-01-31 18:32 | disposition home or self-care (01) ==
LOC: ED 17:38
DX: T82.838A Hemorrhage due to vascular prosthetic devices, implants and grafts, initial encounter (principal); D64.9 Anemia, unspecified; I10 Essential (primary) hypertension; E78.00 Pure hypercholesterolemia, unspecified; J44.9 Chronic obstructive pulmonary disease, unspecified; F41.9 Anxiety disorder, unspecified; F32.9 Major depressive disorder, single episode, unspecified; Z88.8 Allergy status to other drugs, medicaments and biological substances; Z95.810 Presence of automatic (implantable) cardiac defibrillator
CPT/HCPCS: 99282